=== PATIENT | male | born 1955 | race Caucasian/White ===

== ENCOUNTER 2024-04-15 15:00 | Emergency (ER) | payer MEDICARE, OTHER, SELFPAY ==
[2024-04-15 15:04] VITALS: BP 144/78
[2024-04-15 15:27] LABS: % Basophils 0.6 % (0-2); % Eosinophils 5.1 % (0-6); % Immature Granulocytes 0.3 % (0-0.5); % Lymphocytes 24.3 % (20.5-51.1); % Monocytes 9.8 % (1.7-9.3); % Neutrophils 59.9 % (42.2-75.2); Absolute Eosinophils 0.4 10^3/uL (0-0.7); Absolute Lymphocytes 1.7 10^3/uL (1.2-3.4); Absolute Monocytes 0.7 10^3/uL (0.1-0.6); Absolute Neutrophils 4.3 10^3/uL (1.4-6.5); Hematocrit 40.3 % (39.0-52.0); Hemoglobin 14.5 g/dL (13.0-18.0); Mean Corpuscular Hgb 33.8 pg (27.0-31.0); Mean Corpuscular Volume 93.9 fL (80.0-94.0); Mean Platelet Volume 8.8 fL (7.4-10.4); Nucleated Red Blood Cells % 0 % (-); Platelet Count 180 10^3/uL (130-400); Red Blood Cell Count 4.29 10^6/uL (4.70-6.10); Red Cell Dist. Width 12.9 % (11.5-14.5); White Blood Cell Count 7.1 10^3/uL (4.8-10.8)
[2024-04-15 15:42] LABS: ALT (SGPT) 22 U/L (0-50); AST (SGOT) 33 U/L (17-59); Albumin 4.1 g/dl (3.5-5.0); Alkaline Phosphatase 61 U/L (38-126); Blood Urea Nitrogen 15 mg/dl (9-20); Calcium 9.7 mg/dl (8.4-10.2); Carbon Dioxide 27 mmol/L (22-30); Chloride 103 mmol/L (98-107); Glucose 110 mg/dl (70-99); Potassium 4.1 mmol/L (3.5-5.1); Sodium 136 mmol/L (135-145); Total Bilirubin 0.8 mg/dl (0.2-1.3); Total Protein 7.1 g/dl (6.3-8.2); eGFR > 60.00
[2024-04-15 15:51] LABS: Troponin I < 0.012 ng/ml
--- NOTE | 2024-04-15 16:33 | ED.GENMED ---
History of Present Illness
General
Chief Complaint: Blood Pressure Problem
Time Seen by Provider: 04/15/24 15:35
History of Present Illness
History of Present Illness:
68-year-old male with history of coronary artery disease status post RI and stenting 2 months ago ([facility]), hyperlipidemia, hypertension, and prior CABG presents to the emergency department for evaluation of blurry vision, head
pressure, and left upper lip tingling that began approximate 1130 today. He took a dose of Tylenol and the symptoms abated approximately 3 hours later. He currently feels well with no complaints. He is also concerned that his blood pressure was
elevated during this event. He is currently anticoagulated on Eliquis and also takes Plavix after the recent coronary intervention.
Past History
Past History
ED Past Medical History: CAD, CVA, HTN, Hypercholesterolemia, [place] and Other (BPH, glaucoma)
ED Past Surgical History: Cardiac (CABG), Cholecystectomy and Urological
Social History
Tobacco: Former smoker
Alcohol: None
Drug: None
Personal:
Living: with family
Employment: Retired
Family History
Family History: Other
Review of Systems
Review of Systems
Allergies reviewed?: Yes
All Other Systems: ROS reviewed and negative except as documented in HPI and ROS
Phy Exam
Physical Exam
Physical Exam:
GEN: Well appearing, NAD, WDWN
HEENT: Oral mucosa moist, no scleral icterus, no nasal congestion, no carotid bruit
Cardiac: Regular rate and rhythm, no murmurs
Lung: No respiratory distress, no tachypnea, lungs clear to auscultation
MSK: No gross deformity or injuries
Skin: Good color, no pallor or jaundice, no rashes
Neuro: AO x3; CN II-XII grossly intact. BUE strength 5/5 in all conley, sensation intact and symmetric. BLE strength 5/5 in all conley, sensation intact and symmetric
Psych: Calm, cooperative
Course
Orders/Labs/Results
Orders:
Orders
04/15/24 15:07
Electrocardiogram (*1) Urgent
Reason for Study: Hypertension, Benign
EKG- Treatment ONCE
04/15/24 15:09
CT Head W/o Iv Contrast Urgent
Comment:
Reason For Exam: blurry vision and headache.
04/15/24 15:16
Complete Blood Count/With Diff Urgent
Comprehensive Metabolic Panel Urgent
Troponin I Urgent
Abnormal Lab Results
04/15/24
15:16
RBC 4.29 L 10^6/uL
(4.70-6.10)
MCH 33.8 H pg
(27.0-31.0)
Absolute Monos (auto) 0.7 H 10^3/uL
(0.1-0.6)
Monocytes % 9.8 H %
(1.7-9.3)
Glucose 110 H mg/dl
(70-99)
04/15/24 15:16
04/15/24 15:16
Vital Signs
Initial and Last Documented VS:
Initial Vital Signs
Temp Pulse Resp BP Pulse Ox
97.8 F 59 18 144/78 98
04/15/24 15:04 04/15/24 15:04 04/15/24 15:04 04/15/24 15:04 04/15/24 15:04
Last Documented Vital Signs
Temp Pulse Resp BP Pulse Ox
97.8 F 64 18 137/82 98
04/15/24 15:04 04/15/24 16:40 04/15/24 16:40 04/15/24 16:40 04/15/24 16:40
MDM/Problems Addressed
MDM/Problems Addressed:
I suspect the patient's symptoms were more atypical migraine than eligibility services representative of transient ischemic attack. I reviewed his health records on his patient portal for the past and he did have carotid Doppler ultrasound performed less than 1 year
ago showing no carotid stenosis. Given that head CT is normal and the patient returned to her normal neurologic baseline do not feel there is any indication for further workup particular given that he is on maximal medical therapy with
anticoagulant, antiplatelet, and cholesterol medications. I encouraged him to follow-up with his supervisor bindery and his primary care physician as an outpatient and return to the emergency department promptly for any recurrence of symptoms
Comment
Comment:
EKG independently interpreted by me shows a sinus bradycardia at a rate of [address] changes concerning for ischemia
*Critical Care Note
Total Time (30-74mins, 75-104mins- exclusive of procedures): Not Applicable
ED Attending Note
-
Portions of this chart may have been created with voice recognition software.� Occasional wrong word or��sound alike� substitutions may have occurred due to the inherent limitations of voice recognition software.
Discharge Plan
Departure
Patient Disposition: Home (Routine Discharge)
Date of Disposition: 04/15/24
Time of Disposition: 16:33
Patient with high blood pressure during this ER visit?: No
Discharge Problem:
Blurred vision, bilateral
Instructions: High Blood Pressure (DC)
Prescriptions:
No Action
ondansetron 4 mg tablet,disintegrating
4 mg PO Q8H PRN (Reason: nausea and vomiting) 4 Days Qty: 10 0RF
pantoprazole [Protonix] 40 mg tablet,delayed release (DR/EC)
40 mg PO DAILY Qty: 20 0RF
Activity Restrictions/Additional Instructions:
Your workup is reassuring
Follow up with your primary doctor
Return to the ER if symptoms reoccur
Interventions
Interventions:
*Risk Screen - Suicide Last Done: 04/15/24 15:04
*General Assessment Last Done: 04/15/24 15:04
*Neglect/Abuse Screening Last Done: 04/15/24 15:04
ED- Fall Risk Assessment Last Done: 04/15/24 16:33
*ED COVID-19 Vaccine History Last Done: 04/15/24 15:04
*Nursing Disposition Last Done: 04/15/24 16:49
ED- Cardiac Assessment Last Done: 04/15/24 16:33
ED- Neurological Assessment Last Done: 04/15/24 16:33
ED- Pulmonary Assessment Last Done: 04/15/24 16:33
Discharge Date and Time
Discharge Date/Time: 04/15/24 16:49
Print Language: EMIRATI
[2024-04-15 16:40] VITALS: BP 137/82
== END 2024-04-15 16:49 | disposition home or self-care (01) ==
LOC: EMR 15:00
PROVIDERS: Emergency Medicine; EMERGENCY PHYSICIAN Emergency Medicine; FAMILY PHYSICIAN Family Medicine
DX: H53.8 Other visual disturbances (principal); I25.10 Atherosclerotic heart disease of native coronary artery without angina pectoris; I10 Essential (primary) hypertension; E78.00 Pure hypercholesterolemia, unspecified; I25.2 Old myocardial infarction; N40.0 Benign prostatic hyperplasia without lower urinary tract symptoms; H40.9 Unspecified glaucoma; Z79.01 Long term (current) use of anticoagulants; Z86.73 Personal history of transient ischemic attack (TIA), and cerebral infarction without residual deficits; Z87.891 Personal history of nicotine dependence; Z90.49 Acquired absence of other specified parts of digestive tract; Z95.1 Presence of aortocoronary bypass graft; Z95.5 Presence of coronary angioplasty implant and graft
CPT/HCPCS: 99284; 70450; 80053; 84484; 85025; 93005

== ENCOUNTER → 2025-05-03 14:17 | Outpatient (REF) | payer MEDICARE, OTHER, SELFPAY | LOC: RAD 14:17 | PROVIDERS: ATTENDING PHYSICIAN Internal Medicine Cardiovascular Disease; FAMILY PHYSICIAN Family Medicine; OTHER PHYSICIAN Internal Medicine; OTHER PHYSICIAN Internal Medicine Cardiovascular Disease; REFERRING PHYSICIAN Surgery Vascular Surgery | DX: I73.9 Peripheral vascular disease, unspecified (principal) | CPT/HCPCS: 93922; 93925 ==

== ENCOUNTER 2025-05-23 18:46 | Inpatient (IN) | payer MEDICARE, OTHER, SELFPAY ==
[2025-05-23] VITALS (9 sets, daily range): BP systolic 120–159; BP diastolic 63–78; BMI 23.9; BMI 22.7
[2025-05-23] MEDS: DILAUDID 0.5 MG IV ×4 (13:32→22:27)
[2025-05-23] MEDS: NSS 500 IV (13:32)
[2025-05-23] MEDS: PROTONIX IV 40 MG IV (13:33)
[2025-05-23 13:42] LABS: Hematocrit 44.3 % (39.0-52.0); Hemoglobin 15.8 g/dL (13.0-18.0); Mean Corp Hgb Conc. 35.7 g/dL (33.0-37.0); Mean Corpuscular Volume 93.3 fL (80.0-94.0); Nucleated Red Blood Cells % 0 % (-); Platelet Count 211 10^3/uL (130-400); Red Cell Dist. Width 13.1 % (11.5-14.5)
--- NOTE | 2025-05-23 13:49 | ED.GENMED ---
History of Present Illness
General
Chief Complaint: Abdominal Pain
Source: patient
Exam Limitations: none
Time Seen by Provider: 05/23/25 13:22
Nursing documentation reviewed up to this point in time: agreed with
History of Present Illness
History of Present Illness:
Patient with history of CAD, status post cardiac stent placement at [facility] 1 year ago, presents to ED secondary to sudden onset of diffuse abdominal pain, radiating up to his chest, shortly after waking up this morning. Abdominal
pain described as crampy, diffuse, without any alleviating or exacerbate factors. Denies vomiting. Patient reports having had a bowel movement, which did not affect his symptoms. Denies trauma. Denies recent illness. Denies difficulty
urination. Patient unsure if this pain is similar to what he experienced last year. In addition, patient has had his gallbladder removed over 20 years ago, but cannot recall the symptoms that he had at that time. Patient is currently taking
aspirin and Plavix. Denies recent change in medications or diet.
Past History
Past History
ED Past Medical History: CAD, CVA, HTN, Hypercholesterolemia, [place] and Other (BPH, glaucoma)
ED Past Surgical History: Cardiac (CABG), Cholecystectomy and Urological
Social History
Tobacco: Former smoker
Alcohol: None
Drug: None
Personal:
Living: with family
Employment: Retired
Family History
Family History: Other
Review of Systems
Review of Systems
Allergies reviewed?: Yes
All Other Systems: ROS reviewed and negative except as documented in HPI and ROS
Constitutional: Reports no symptoms; Denies fever
Respiratory: Reports no symptoms
Cardiac: Reports chest pain
ABD/GI: Reports abdominal pain; Denies vomiting or diarrhea
: Reports no symptoms
Musculoskeletal: Reports no symptoms
Skin: Reports no symptoms
Neurological: Reports no symptoms
Phy Exam
Physical Exam
Physical Exam:
Physical Exam
General: mild painful distress, not acutely ill. afebrile
Head: nc/at. eomi
Neck: supple. normal range of motion. normal posterior pharynx
Heart: s1/s2 regular rate and rhythm,
Lungs: no acute respiratory distress. clear bilaterally. chest wall nontender to palpation
Abdomen: normal bowel sounds. not tender.
Neuro: alert and oriented x 3. no focal neurological deficits
Skin: no rash
Psychiatric: well kept. interactive and cooperative
Extremities: no edema. no calf tenderness.
Course
Orders/Labs/Results
Orders:
Orders
05/23/25 12:51
ECG [Electrocardiogram (*1)] Urgent
Reason for Study: Chest Pain
EKG- Treatment ONCE
05/23/25 13:22
Complete Blood Count/With Diff Urgent
Comprehensive Metabolic Panel Urgent
Lipase Urgent
NT-proBNP Urgent
Comment: PROBNP ADDED ON BY FLOOR 2:30PM 05-23-25
Troponin I Urgent
05/23/25 13:27
HYDROmorphone [Dilaudid] 0.5 mg IV NOW STA
Pantoprazole [Protonix IV] 40 mg IV NOW STA
05/23/25 13:28
0.9% Sodium Chloride 500 ml [Nss] 500 ml IV BOLUS
CR Obstruct Series W/pa Chest Urgent
Comment:
Reason For Exam: chest/upper abd pain
05/23/25 14:27
Add On- LAB Urgent
Tests Added?: ProBNP
05/23/25 14:42
CT Abd/pelvis W Iv Cont Urgent
Comment:
Reason For Exam: lower abd pain
05/23/25 14:46
HYDROmorphone [Dilaudid] 0.5 mg IV NOW STA
Ondansetron Injectable [Zofran] 4 mg IV NOW STA
05/23/25 Dinner
NPO
Allow oral meds: Yes
Allow clear liquids: No
05/23/25 18:09
HYDROmorphone [Dilaudid] 0.5 mg IV NOW STA
05/23/25 18:24
Piperacillin/Tazo 3.375 Gram [Zosyn] 3.375 gram in 50 ml IV NOW
05/23/25 18:37
Admit/Transfer Patient As Directed
Co-Sign Provider:
Level of Care: Inpatient admission
Assign to:: Telemetry
Physician / Group: leena
Diagnosis: acute appendicitis
Reason for Telemetry: Arrhythmia
Date to Stop Telemetry: 05/26/25
Time to Stop Telemetry: 11:00
Reason for Hospitalization: acute appendicitis
Expected length of stay greater than two midnights?: Yes
ELOS- Estimated Length of Stay in days: 2
I certify the patient meets the requirements for IP care: Yes
PRN Pain Medication Management As Directed
May give lesser potent ordered pain med per pt: Yes
preference::
Protocol:: Medication orders for pain may be administered in a
manner that supports deferring to patient preference
when the pt is:
- Requesting an ordered lesser potent pain medication.
Least to most potent pain medications are defined
as: acetaminophen < NSAID < tramadol < opioids
(morphine, oxycodone, hydromorphone).
- Requesting a lesser dose of the same medication IF
ORDERED.
- Requesting a less intrusive route of administration
if both routes are prescribed by the provider (PO <
IV).
05/23/25 18:38
Code Status As Directed
Resuscitation Status: Full Code
05/23/25 22:12
0.9% Sodium Chloride 1000 ml [Nss] 1,000 ml IV 100 mls/hr
HYDROmorphone [Dilaudid] 0.5 mg IV Q4HPRN PRN
Ondansetron Injectable [Zofran] 4 mg IV Q6HPRN PRN
05/23/25 22:12
SURGICAL CONSULT Routine
Consulting Provider: Ronn Mendez
Was physician already notified: Yes
Activity As Directed
Activity Level: As Tolerated
Pneumatic Compression Sleeves As Directed
Type: Knee high
Vital Signs As Directed
Frequency: Per unit guidelines
DX Deep Vein Thrombosis Video Routine
05/24/25 07:14
Complete Blood Count/With Diff IN AM
Comprehensive Metabolic Panel IN AM
05/26/25 11:00
DC Protocol for Telemetry ONCE
Abnormal Lab Results
05/23/25
13:22
WBC 14.3 H 10^3/uL
(4.8-10.8)
MCH 33.3 H pg
(27.0-31.0)
Abs Immat Gran (auto) 0.1 H 10^3/uL
(0-0.05)
Absolute Neuts (auto) 11.9 H 10^3/uL
(1.4-6.5)
Absolute Lymphs (auto) 1.0 L 10^3/uL
(1.2-3.4)
Absolute Monos (auto) 0.9 H 10^3/uL
(0.1-0.6)
Immature Gran % 0.6 H %
(0-0.5)
Neutrophils % 83.1 H %
(42.2-75.2)
Lymphocytes % 7.2 L %
(20.5-51.1)
Sodium 133 L mmol/L
(135-145)
Glucose 106 H mg/dl
(70-99)
05/23/25 13:22
05/23/25 13:22
Vital Signs
Initial and Last Documented VS:
Initial Vital Signs
Temp Pulse Resp BP Pulse Ox
98.4 F 61 16 159/78 99
05/23/25 12:52 05/23/25 12:52 05/23/25 12:52 05/23/25 12:52 05/23/25 12:52
Last Documented Vital Signs
Temp Pulse Resp BP Pulse Ox
97.8 F 78 18 122/64 97
05/24/25 14:30 05/24/25 14:45 05/24/25 14:45 05/24/25 14:45 05/24/25 14:45
MDM/Problems Addressed
MDM/Problems Addressed:
CT abdomen pelvis report reviewed and discussed with patient.
Patient evaluated in ED by Dr. Mendez, surgery. Recommends admission to hospitalist service, in light of patient's extensive medical history, as well as patient currently taking aspirin and Plavix.
*Pulse Oximetry
SaO2: 99
Oxygen Mode of Delivery: Room air
Patient hypoxic: no
*EKG
Interpreted by ED Provider?: Yes
EKG Intrepretation Date: 05/23/25
Heart Rate: 63
Rate: normal
Rhythm: sinus and PVC's
Wisdom: normal axis
*Critical Care Note
Total Time (30-74mins, 75-104mins- exclusive of procedures): Not Applicable
ED Attending Note
-
Portions of this chart may have been created with voice recognition software.� Occasional wrong word or��sound alike� substitutions may have occurred due to the inherent limitations of voice recognition software.
Discharge Plan
Departure
Patient Disposition: Admit
Date of Disposition: 05/23/25
Time of Disposition: 18:24
Admit to: Telemetry
Presentation/result/management discussed w/ accepting MD/DO: Hospitalist
Discharge Problem:
Acute appendicitis
Interventions
Interventions:
*Risk Screen - Suicide Last Done: 05/23/25 14:14
*General Assessment Last Done: 05/23/25 14:14
*Neglect/Abuse Screening Last Done: 05/23/25 14:14
*ED- Fall Risk Assessment Last Done: 05/23/25 14:14
*ED COVID-19 Vaccine History Last Done: 05/23/25 14:14
*Nursing Disposition Last Done: 05/23/25 22:08
RF-Nelopb-Lqttaajfbg Assessment Last Done: 05/23/25 13:38
Discharge Date and Time
Discharge Date/Time: 05/23/25 22:09
[2025-05-23 13:58] LABS: ALT (SGPT) 16 U/L (0-50); AST (SGOT) 28 U/L (17-59); Albumin 4.3 g/dl (3.5-5.0); Alkaline Phosphatase 81 U/L (38-126); Blood Urea Nitrogen 12 mg/dl (9-20); Calcium 9.6 mg/dl (8.4-10.2); Carbon Dioxide 26 mmol/L (22-30); Chloride 101 mmol/L (98-107); Glucose 106 mg/dl (70-99); Lipase 76 U/L (23-300); Potassium 4.1 mmol/L (3.5-5.1); Sodium 133 mmol/L (135-145); Total Protein 8.2 g/dl (6.3-8.2); eGFR > 60.00
[2025-05-23 14:07] LABS: Troponin I 0.015 ng/ml
[2025-05-23] MEDS: ZOFRAN 4 MG IV ×2 (14:49→22:27)
[2025-05-23] MEDS: ZOSYN 50 IV (18:27)
--- NOTE | 2025-05-23 19:12 | HPS.HSE ---
Family Physician
-
Family Physician: Lisa Meeks MD
Chief Complaint
-
abdominal pain
History of Present Illness
69-year-old male past medical history of CAD status post CABG in 1998, prior cardiac stents, stent placement 1 year ago, prior TIA, bilateral carotid artery stenosis 70% and 50%, hypertension, hypercholesteremia, BPH, glaucoma, ILD, rheumatoid
arthritis, bilateral groin hernias presenting with sudden onset of diffuse abdominal pain rating up to his chest waking up this morning. Abdominal pain is described as crampy and diffuse without any alleviating or exacerbating factors. He did have
an episode of vomiting. He did have chills. He reports having a bowel movement which did not affect his symptoms. Denies trauma. Denies any recent illness. Denies urinary symptoms.
He has a extensive cardiac history with history of CABG in , prior cardiac stents, stent placement 1 year ago. Denies any recent chest pain or shortness of breath.
He was found to have carotid artery stenosis with 70% blockage on the right, 50% blockage on the left. Scheduled to see Dr. Dominguez for discussion of intervention. He has had 3 syncopal episodes in the past year. He had a prior history of TIA.
He did have cholecystectomy 20 years ago.
Denies history of smoking. Drinks 1 to 2 glasses of wine.
Medical History
Past Medical History
Past Medical History: Reports Other ( CAD status post CABG in 1998, 15 prior cardiac stents, stent placement 1 year ago, prior TIA, bilateral carotid artery stenosis 70% and 50%, hypertension, hypercholesteremia, BPH, glaucoma, ILD, rheumatoid
arthritis, bilateral groin hernias)
Past Surgical History: Reports Other (CABG )
Social History
Tobacco: Non-smoker
Alcohol: Daily
Drug: None
Family History
Family History: Not pertinent
Allergies / Home Medications
Allergies reflects when Allergies were last updated in [employer].
Home Medications with original date entered in [employer]
Allergy/Medication List:
Allergies
Allergy/AdvReac Type Severity Reaction Status Date / Time
latex Allergy Rash Verified 05/23/25 12:57
Home Medications
ondansetron 4 mg disintegrating tablet 4 mg PO Q8H PRN nausea and vomiting 4 days #10 tabs 11/27/22
pantoprazole 40 mg tablet,delayed release (Protonix) 40 mg PO DAILY #20 tabs 11/27/22
Review of Systems
-
Constitutional: Reports No Symptoms
EENT: Reports No Symptoms
Respiratory: Reports No Symptoms
Cardiac: Reports No Symptoms
Abdomen/GI: Reports No Symptoms
: Reports No Symptoms
Musculoskeletal: Reports No Symptoms
Skin: Reports No Symptoms
Neurological: Reports No Symptoms
Endocrine: Reports No Symptoms
Hematologic/Lymphatic: Reports No Symptoms
Psych: Reports No Symptoms
Physical Exam
Vital Signs
Vital Signs
Temp Pulse Resp BP Pulse Ox
98.4 F 70 14 139/67 95
05/23/25 12:52 05/23/25 18:30 05/23/25 18:30 05/23/25 18:00 05/23/25 18:15
Physical Exam
General: Well Developed, Well Nourished and No Apparent Distress
HEENT: NormoCephalic, Moist mucous membranes and Atraumatic
Respiratory: Clear
Cardiac: S1/S2 and Regular Rhythm; No Murmur or Rub
GI: Soft, Non Tender, Non Distended and Normal Bowel Sounds; No Organomegaly
Rectal: Deferred by Provider
Musculoskeletal: No Clubbing, No Cyanosis and No Edema
Skin: No Rash
Neuro: Nonfocal/grossly intact
Laboratory Results
-
05/23/25 13:22
05/23/25 13:22
Laboratory Results
Total Bilirubin 0.9 mg/dl (0.2-1.3) 07/28/25 13:22
AST 28 U/L (17-59) 05/23/25 13:22
ALT 16 U/L (0-50) 05/23/25 13:22
Alkaline Phosphatase 81 U/L (38-126) 05/23/25 13:22
Troponin I 0.015 ng/ml 05/23/25 13:22
Lipase 76 U/L (23-300) 05/23/25 13:22
Data Reviewed
-
Lab Data: Labs Reviewed by me
Old Records: Reviewed
Impression/Plan
-
IMPRESSION:
PLAN:
# Acute appendicitis
-Leukocytosis
- CT abdomen pelvis shows 3 Ramos appendix fecalith, gallbladder slightly distended 8 mm, mild adjacent/surrounding inflammatory soft tissue stranding highly concerning for appendicitis.
- N.p.o.
- IV fluids
- Zosyn
- General Surgery consulted
-Zofran, Dilaudid
- Patient with high risk for post cardiac complication given CAD, and carotid artery stenosis
- Cardiology consulted for risk assessment and optimization
#CAD status post CABG in 1988, 15 prior stents, recent stent 1 year ago
- Hold Plavix
- continue aspirin
# Bilateral carotid artery stenosis
- 70% blockage in right, 50% blockage on left
- Has not seen Dr. Dominguez yet
-continue aspirin, hold plavix
# Recent syncopal episodes in the past year
- Do not think carotid artery stenosis should be the cause of this
Bilateral groin hernias
History of TIA
Essential hypertension
- Continue metoprolol
Hypercholesterolemia
BPH
Glaucoma
History of ILD
Rheumatoid arthritis
Daily alcohol use
Full code
DVT prophylaxis�SCDs
N.p.o.
--- NOTE | 2025-05-23 19:59 | CON.GS ---
Medical History
-
Chief Complaint: Abdominal pain
History of Present Illness:
Patient is a 69 yo M with a PMH of HTN, HLD, CAD s/p CABG in 1998 s/p PCI with stents x 15 most recently in 2023 (on ASA and Plavix, LD 7 AM), TIAs, bilateral carotid artery stenosis, BPH, newly diagnosed RA, and s/p laparoscopic appendectomy who
presents with 24 hours of abdominal pain. He states that his symptoms began acutely this morning. He describes an upper abdominal discomfort and pressure sensation. Associated nausea and vomiting. Associated fevers and chills; of note he states
that he has chronic issues with fevers and chills that has been largely undiagnosed. He denies any fluctuations in GI function. Denies any chronic GI issues. States that his last colonoscopy was within the last few years at an outside hospital.
He has an extensive cardiovascular history the majority of which has been managed at [facility]. He was recently found to have carotid artery stenosis with 70% blockage on the RIGHT and 50% blockage on the LEFT. He was scheduled
for vascular evaluation by Dr. Dominguez in the near future. He has a prior history of TIAs and syncopal episodes.
Past Medical History
Past Medical History: CAD, CVA, GERD, HTN, Hypercholesterolemia and Other (Symptomatic carotid artery stenosis)
Past Surgical History: Cardiac (CABG and PCI with multiple stents) and Cholecystectomy
Social History
Tobacco: Non-Smoker
Alcohol: Daily
Drug: None
Family History
Family History: Reviewed & Noncontributory
Allergies / Home Medications
Allergy/AdvReac Type Severity Reaction Status Date / Time
latex Allergy Rash Verified 05/23/25 12:57
�Medication �Instructions �Recorded �Confirmed �Type
ondansetron 4 mg disintegrating 4 mg PO Q8H PRN nausea and 11/27/22 Rx
tablet vomiting 4 days #10 tabs
pantoprazole 40 mg tablet,delayed 40 mg PO DAILY #20 tabs 11/27/22 Rx
release (Protonix)
Review of Systems
-
A 10 point review of systems was completed, and was negative except as per HPI.
Physical Exam
Vital Signs
Temp Pulse Resp BP Pulse Ox
98.4 F 70 14 139/67 95
05/23/25 12:52 05/23/25 18:30 05/23/25 18:30 05/23/25 18:00 05/23/25 18:15
05/22/25 05/23/25 05/24/25
06:59 06:59 06:59
Actual Weight 80 kg
Body Mass Index (BMI) 23.9
Lab Results
05/23/25 13:22
05/23/25 13:22
WBC 14.3 10^3/uL (4.8-10.8) H 05/23/25 13:22
Hgb 15.8 g/dL (13.0-18.0) 05/23/25 13:22
Hct 44.3 % (39.0-52.0) 05/23/25 13:22
Plt Count 211 10^3/uL (130-400) 05/23/25 13:22
Abs Immat Gran (auto) 0.1 10^3/uL (0-0.05) H 05/23/25 13:22
Neutrophils % 83.1 % (42.2-75.2) H 05/23/25 13:22
Physical Exam
General: Well Developed, Well Nourished and No Apparent Distress
HEENT: Normocephalic and Anicteric
Respiratory: Non Labored Respirations
Cardiac: Regular Rhythm
GI: Soft, Non Distended, Tender (RLQ), Incisions (Well healed) and Other (No diffuse peritonitis)
Musculoskeletal: No Edema
Skin: Warm and Dry
Neuro: Nonfocal/Grossly Intact
Data Reviewed
-
CT Scan: Image Personally Visualized and interpreted and Report Reviewed by me
Labs: Labs Reviewed by me
Assessment / Plan
-
Patient is a 69 yo M p/w acute appendicitis
The natural history and pathophysiology of appendicitis was discussed. Anatomy was reviewed. CT scan imaging as a relates to his appendix was reviewed. Options for management including medical management with antibiotics versus surgical
management with appendectomy were considered and discussed. He has an increased risk for failure of medical management given his small appendicolith. He is at increased risk for operative complications given his antiplatelet medications and
cardiovascular risk profile.
We discussed a laparoscopic appendectomy. The procedure itself, as well as the risks, benefits, and alternatives was discussed. Typical postprocedure recovery was discussed.
Given his increased cardiovascular risks and active antiplatelet medications plan on an initial trial of antibiotics for the first 12 to 24 hours. He will need cardiovascular risk profiling and clearance. Hold Plavix for now. Antibiotics with
Zosyn.
-- Abx: Zosyn
-- Cardiac consult, may need Vascular consult given his carotid stenosis
-- NPO, IVF
-- Hold Plavix
-- Repeat labs in AM
[2025-05-23] MEDS: NSS 1000 IV (22:28)
[2025-05-24] VITALS (14 sets, daily range): BP systolic 117–144; BP diastolic 61–82
[2025-05-24] MEDS: DILAUDID 0.5 MG IV ×3 (02:27→10:27)
[2025-05-24] MEDS: TYLENOL 650 MG PO (02:48)
--- NOTE | 2025-05-24 07:59 | CON.CAR ---
Addendum entered and electronically signed by Devonte Tubbs MD 05/24/25 13:06:
69-year-old man with acute appendicitis scheduled for appendectomy.
PMH/PSH: CAD, status post CABG 1998, cardiac catheterization January 2024 with patent COVINGTON to LAD, numerous stents with most recent being RCA stent January 2024 no other grafts seen, hyperlipidemia, hypertension, greater than 70% right ICA stenosis by
ultrasound March 2025, PAD, history of atrial flutter ablation, LINQ monitor, cholecystectomy, remote TIA, glaucoma, rheumatoid arthritis, interstitial lung disease, BPH, bilateral herniorrhaphies
Current medications: Aspirin 81 mg a day, metoprolol ER 50 mg twice daily, Plaquenil 400 mg a day, Remeron, pantoprazole, tamsulosin, thiamine, piperacillin, Lovenox. Patient had been on Plavix as outpatient, Repatha
Last week he walked on a treadmill up a 10% grade at 3.2 miles an hour for 20 minutes without symptoms of excessive dyspnea and without chest.
Rest of history as per Christina Dominguez. Note below reviewed in detail and agree unless otherwise specified.
139/68, pulse 70, rest, exam unremarkable, lungs are clear, regular rate and rhythm without murmurs, abdomen benign extremities without clubbing sinus edema distal pulses palpable but diminished
Chest x-ray reticular pattern, Linq in place, minor atherosclerosis
ECG: Pending
Hemoglobin 13.5, platelets 144, BUN/creatinine are 7 and 0.8
Impression:
Appendicitis
Longstanding CAD with multiple PCI's, remote CABG, D, no other grafts patent
Other diagnoses as above PMH/PSH and as below per Christina Dominguez. Reviewed in detail and agree, unless otherwise specified
Plan:
He appears stable from a cardiac standpoint.
EKG images not currently available for review. However, official read is sinus rhythm with PVCs only.
Patient appears to be medically optimized and can proceed as planned with appendectomy at acceptable cardiac risk.
Original Note:
Consultation
Consultation Request
Date/Time Consultation Requested: 05/23/2025 at 2343
Date/Time Consultation Performed: 05/24/2025 at 0759
Requesting Provider: Dr. Ott
Performing Provider: Dr. MARILOU Tubbs
Reason for Consultation: Preoperative cardiovascular risk stratification for planned appendectomy
Medical History
-
History of Present Illness:
Patient came to the ER yesterday with abdominal pain and was admitted with acute appendicitis and cardiology is consulted for preoperative evaluation and also at patient request. Patient reports that his father with complications from
appendicitis and so when he started with abdominal pain he was concerned and came to the ER. Imaging reveals appendicitis and there was discussion about medical management versus surgical intervention. Patient now feels he would like surgical
intervention, cardiology consultation requested for preoperative risk factor stratification. Patient used to follow with a range rider at [facility], Dr. Tony Wilkinson, who retired and patient elected to begin following with Dr. Beltre "Tressa"roseanne for long-term cardiology care and was seen by him as an initial visit in the office on 03/18/2025. At that time they reviewed his cardiac history and set BP and cholesterol goals. Patient was recommended to stay on aspirin 81 mg daily lifelong
therapy and Plavix 75 mg daily, he has been on DAPT for more than 1 year given his history of CABG and multiple percutaneous interventions with the last one being on 02/04/2024. 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 No resting chest pain or shortness of breath.
PMH:
CAD
s/p CABG with COVINGTON to mid LAD, other grafts unknown 1998
s/p proximal to mid [employer] RCA PCI no stent name or dimension listed in available record 02/04/24
Cardiac cath 02/04/2024 with patent COVINGTON to mid LAD and no other patent grafts were visualized on supravalvular aortogram
Hyperlipidemia
HTN
Right ICA disease, greater than 70% by carotid U/S 03/2025
PAD with claudication
Paroxysmal typical atrial flutter without recurrence following ablation at unknown date
Not chronically anticoagulated due to lack of recurrence of atrial arrhythmia and patient choice
Linq monitor in place
Past Medical History
Past Medical History: Other (In HPI)
Past Surgical History: Cardiac (CABG 1998, multiple PCI procedures, last PCI was an RCA stent 01/2024, s/p Linq monitor) and Cholecystectomy
Social History
Tobacco: Former Smoker
Alcohol: Occasional
Drug: None
Personal:
Living: With Family
Family History
Family History: CAD
Allergies / Home Medications
Allergy/AdvReac Type Severity Reaction Status Date / Time
latex Allergy Rash Verified 05/23/25 12:57
�Medication �Instructions �Recorded �Confirmed �Type
ondansetron 4 mg disintegrating 4 mg PO Q8H PRN nausea and 11/27/22 Rx
tablet vomiting 4 days #10 tabs
pantoprazole 40 mg tablet,delayed 40 mg PO DAILY #20 tabs 11/27/22 05/23/25 Rx
release (Protonix)
Repatha Syringe IM Autoimmune Disorder 05/23/25 History
aspirin 81 mg tablet,delayed 81 mg PO DAILY Blood Clot 05/23/25 05/23/25 History
release Prevention/Tx
clopidogrel 75 mg tablet (Plavix) 75 mg PO DAILY Blood Clot 05/23/25 05/23/25 History
Prevention/Tx
hydroxychloroquine 200 mg tablet 400 mg PO DAILY Autoimmune Disorder 05/23/25 05/23/25 History
metoprolol succinate 50 mg 50 mg PO BID Blood Pressure 05/23/25 05/23/25 History
tablet,extended release 24 hr
(Toprol XL)
mirtazapine 15 mg tablet 15 mg PO HS Depression 05/23/25 05/23/25 History
plecanatide 3 mg tablet (Trulance) 3 mg PO DAILY Diabetes 05/23/25 05/23/25 History
tamsulosin 0.4 mg capsule (Flomax) 0.4 mg PO HS Urinary Issue 05/23/25 05/23/25 History
Review of Systems
-
History Source: Patient
All other systems: Negative unless noted
Physical Exam
Vital Signs
Temp Pulse Resp BP Pulse Ox
98.6 F 61 18 123/64 97
05/24/25 03:52 05/24/25 03:52 05/24/25 03:52 05/24/25 03:52 05/24/25 03:52
GEN: NAD. AAOx3
HEENT: EOMI, MMM
LUNGS: RA. CTA B/L, no wheeze
CV: SR on tele. Reg, no murmur
ABD: diffusely tender
EXT: No edema
NEURO: Gross non-focal
SKIN: No rash
Lab Results
Troponin I 0.015 ng/ml 05/23/25 13:22
Eum-T-Cmirnhgqnqq Pept 143 pg/ml 05/23/25 13:22
Impression / Plan
-
PCP: Dr. Lisa Meeks
Cardiology: Dr. Lord
Impression:
Admitted with abdominal pain and acute appendicitis 05/15/2025
Acute appendicitis
CAD
s/p CABG with COVINGTON to mid LAD, other grafts unknown 1998
s/p proximal to mid [place] RCA PCI no stent name or dimension listed in available record 02/04/24
Cardiac cath 02/04/2024 with patent COVINGTON to mid LAD and no other patent grafts were visualized on supravalvular aortogram
Hyperlipidemia
HTN
Right ICA disease, greater than 70% by carotid U/S 03/2025
PAD with claudication
Paroxysmal typical atrial flutter without recurrence following ablation at unknown date
Not chronically anticoagulated due to lack of recurrence of atrial arrhythmia and patient choice
Linq monitor in place
Echo 02/05/2024: EF 55 to 60%, grade 2 diastolic dysfunction, basal and mid inferior wall and basal inferoseptal hypokinesis, mitral valve thickened with physiologic MR
Plan:
-Patient came to the ER yesterday with abdominal pain and was admitted with acute appendicitis and cardiology is consulted for preoperative evaluation and also at patient request. Patient reports that his father with complications from
appendicitis and so when he started with abdominal pain he was concerned and came to the ER. Imaging reveals appendicitis and there was discussion about medical management versus surgical intervention. Patient now feels he would like surgical
intervention, cardiology consultation requested for preoperative risk factor stratification. Patient used to follow with a range rider at [facility], Dr. Tony Wilkinson, who retired and patient elected to begin following with Dr. Beltre "Tressa"roseanne for long-term cardiology care and was seen by him as an initial visit in the office on 03/18/2025. At that time they reviewed his cardiac history and set BP and cholesterol goals. Patient was recommended to stay on aspirin 81 mg daily lifelong
therapy and Plavix 75 mg daily, he has been on DAPT for more than 1 year given his history of CABG and multiple percutaneous interventions with the last one being on 02/04/2024. 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 No resting chest pain or shortness of breath.
-ECG reviewed by me is SR without acute ST changes
-Telemetry reviewed by me looks like SR. Patient with Linq monitor in place, will interrogate, it was not performed in the ER.
-Patient with known history of paroxysmal atrial flutter, but had previous ablation and no documented recurrence on Linq monitoring and for this reason patient has elected not to take OAC.
-Patient is chronically on DAPT with aspirin and Plavix for his history of CAD including CABG 99 and then multiple PCI's with the last one being 02/04/2024. Plavix is now on hold in anticipation of surgery, but aspirin should be continued throughout
without interruption.
-No exertional chest pain with activities prior to admission and no resting chest pain. No acute ischemic changes on ECG.
-Recommend perioperative telemetry monitoring
-Recommend maintaining Hgb greater than 8
-Outpatient dose of beta-krishna in the form of Toprol-XL 50 mg BID should be continued and would lower dose for hypotension as needed
[2025-05-24 08:13] LABS: Hematocrit 38.8 % (39.0-52.0); Hemoglobin 13.5 g/dL (13.0-18.0); Mean Corp Hgb Conc. 34.8 g/dL (33.0-37.0); Mean Corpuscular Volume 93.0 fL (80.0-94.0); Nucleated Red Blood Cells % 0 % (-); Platelet Count 144 10^3/uL (130-400); Red Cell Dist. Width 13.0 % (11.5-14.5)
[2025-05-24] MEDS: NSS 1000 IV (08:16)
[2025-05-24 08:27] LABS: ALT (SGPT) 12 U/L (0-50); AST (SGOT) 21 U/L (17-59); Albumin 3.5 g/dl (3.5-5.0); Alkaline Phosphatase 72 U/L (38-126); Blood Urea Nitrogen 7 mg/dl (9-20); Calcium 8.4 mg/dl (8.4-10.2); Carbon Dioxide 26 mmol/L (22-30); Chloride 104 mmol/L (98-107); Estimated Creatinine Clearance 95 ml/min; Glucose 86 mg/dl (70-99); Potassium 3.9 mmol/L (3.5-5.1); Sodium 135 mmol/L (135-145); Total Protein 6.5 g/dl (6.3-8.2); eGFR > 60.00
[2025-05-24] MEDS: PROTONIX 40 MG PO (08:27)
[2025-05-24] MEDS: TOPROL XL PO (09:48)
[2025-05-24] MEDS: PLAQUENIL PO (09:48)
[2025-05-24] MEDS: ASPIR LOW (ENTERIC COATED) PO (09:48)
[2025-05-24] MEDS: ZOSYN 50 IV ×2 (09:49→20:14)
--- NOTE | 2025-05-24 10:34 | W.PN.GS2 ---
Today's Communication / Plan
-
-- Laparoscopic appendectomy
Assessment / Plan
-
Patient is a 69 yo M p/w acute appendicitis.
AVSS
Labs notable for normalized WBC
Options for management including continued medical management with antibiotics versus surgical management with appendectomy were considered and discussed. The pros and cons of both approaches was discussed. We specifically discussed failure of
medical management and surgical risks. He is at increased risk for surgical complications including bleeding with his antiplatelet medications and anesthesia related to his cardiac risk profile. Cardiology evaluation and risk assessment. Stable
and cleared for the OR. Patient would like to proceed with surgical intervention.
Plan for a laparoscopic appendectomy. The procedure itself, as well as the risks, benefits, and alternatives was discussed. Specifically, we discussed the risks of bleeding, infection, injury to surrounding structures (bowel, bladder), need for
open procedure, and general anesthetic risks. Typical postprocedural recovery including pain management and the need for 2 to 3 weeks no heavy lifting or strenuous activities was discussed. All questions answered. Consent signed.
-- Laparoscopic appendectomy
-- NPO, IVF
-- Antibiotics: Zosyn
Subjective Data
-
Date of Service: May 24, 2025
Reports worsening pain localized to the RLQ. No fevers. No nausea or emesis. No chest pain or SOB. No dizziness or lightheadedness.
Objective Data
-
Intake and Output
05/23/25 05/24/25 05/25/25
06:59 06:59 06:59
Intake Total 800 / 800
Balance 800 / 800
Intake:
IV fluids (Total) 800 / 800
Other:
Number of approximated MODERATE 3
amounts of urine
Vital Signs
Temp Pulse Resp BP Pulse Ox
97.9 F 58 18 117/61 97
05/24/25 07:39 05/24/25 07:39 05/24/25 07:39 05/24/25 07:39 05/24/25 07:39
Lab Results
05/24/25 07:14
05/24/25 07:14
Calcium 8.4 mg/dl (8.4-10.2) 05/24/25 07:14
Total Bilirubin 0.9 mg/dl (0.2-1.3) 05/24/25 07:14
AST 21 U/L (17-59) 05/24/25 07:14
ALT 12 U/L (0-50) 05/24/25 07:14
Alkaline Phosphatase 72 U/L (38-126) 05/24/25 07:14
Total Protein 6.5 g/dl (6.3-8.2) D 05/24/25 07:14
Albumin 3.5 g/dl (3.5-5.0) 05/24/25 07:14
Physical Exam
-
Gen: NAD
Abd: soft, tender in RLQ, ND, localized peritonitis
Patient has a snow catheter: No
Patient has a central line: No
--- NOTE | 2025-05-24 10:46 | W.SUR.PREOP ---
Pre-Operative Surgical Note
-
I have examined this patient prior to the performance of the scheduled procedure.
The patient's condition is unchanged from the time of the current History and
Physical and the patient is able to undergo the scheduled procedure.
--- NOTE | 2025-05-24 13:27 | W.PN.HOSP.TC ---
Today's Communication/Plan
-
OR planned
Continue AB
Assessment / Plan
Assessment / Plan
69-year-old man with abdominal pain
CT abdomen pelvis shows 3 Ramos appendix fecalith, gallbladder slightly distended 8 mm, mild adjacent/surrounding inflammatory soft tissue stranding highly concerning for appendicitis
Echo 02/05/2024-EF 55 to 60%, grade 2 diastolic dysfunction, basal inferior wall and basal inferoseptal hypokinesis. Mitral valve thickened and physiological MR
Patient was seen earlier today in the morning. Late documentation
Patient is awake and alert
Cardiovascular system S1-S2 appreciated, short systolic murmur at apex
Chest clear to auscultation
Abdomen right lower quadrant tenderness present
No pedal edema
# Acute appendicitis
Urgent surgery
Patient has a slightly high risk given vascular disease as well as cardiac disease.
Cardiology evaluated the patient .Patient has more pain since yesterday proceed with surgery as long as patient understands the risks which I explained to him. He is also aware that he is at high risk for bleeding given Plavix on board. He wishes
to proceed.
Discussed with surgeon
Continue IV antibiotics-Zosyn
Hold Plavix
Keep n.p.o. with IV fluids
General Surgery consulted and following
# Coronary disease with history of CABG multiple stents and recent stent was 1 year ago
Hold Plavix, continue aspirin
# Bilateral carotid artery stenosis 70% On the right and 50% on the left
Hold Plavix, continue aspirin
History of TIA
Discussed with vascular. Outpatient follow-up
# Peripheral disease-
Right JAMES 0.85, TBI 0.57 high-grade stenosis within the right distal SFA more than 75%.
Left JAMES 1.09, left TBI 0.94 high-grade stenosis within the left distal SFA, estimated more than 75%
Infrapopliteal disease on both side
Discussed with vascular. Outpatient follow-up
# Paroxysmal atrial flutter with history of ablation
Not on anticoagulation due to decreased burden as well as patient's choice. Linq monitor in place
# Hypertension-continue metoprolol
# Hyperlipidemia/Atherosclerosis-on Repatha
# Recent syncopal episodes in the past year
# Rheumatoid arthritis-continue Plaquenil
# Enlarged prostate-continue Flomax
# IBS-hold Trulance
# Depression-continue Remeron
# Bilateral inguinal hernias
# L1-2 degenerative disc disease.
# Ex-smoker
# DVT prophylaxis-Lovenox
# Full code
D/W RN
Patient denies daily alcohol use. He states that he only drinks occasionally.
Discussed with cardiology
Discussed with vascular
Discussed with surgeon
Time spent more than 50 minutes
Part of this note was created using voice recognition system. Occasional wrong word or��sound alike� substitutions may have inadvertently occurred due to the inherent limitations of voice recognition software. If noted kindly bring it to my
attention for correction.
Anticipated Discharge: > 48 hours
Subjective/Interval History
-
Date of Service: May 24, 2025
Objective Data
-
Labs:
Laboratory Results
05/24/25
07:14
WBC 10.2
Hgb 13.5
Hct 38.8 L
Plt Count 144 D
Sodium 135
Potassium 3.9
Chloride 104
Carbon Dioxide 26
BUN 7 L
Creatinine 0.8
Glucose 86
Calcium 8.4
Total Bilirubin 0.9
AST 21
ALT 12
Alkaline Phosphatase 72
Vital Signs:
Vital Signs
Temp Pulse Resp BP Pulse Ox
98.9 F 70 18 139/68 96
05/24/25 11:07 05/24/25 11:07 05/24/25 11:07 05/24/25 11:07 05/24/25 11:07
I&O
05/23/25 05/24/25 05/25/25
06:59 06:59 06:59
Intake Total 800 / 800
Balance 800 / 800
[2025-05-24] MEDS: ZOSYN IV (13:38)
--- NOTE | 2025-05-24 13:57 | W.IMMPOSTOP ---
Surgical Immed Post Op Note
-
Primary Surgeon: Vanessa
Assisting Surgeon: None
Pre-op Diagnosis: Laparoscopic appendectomy
Post-op Diagnosis: Laparoscopic appendectomy
Procedure Performed: Acute appendicitis
Anesthesia Type: General
Specimen / Cultures:
1. Appendix
Estimated Blood Loss: 3 cc
Complications: None
Operative Findings:
1. Inflamed and dilated appendix, ecchymotic and slight gangrenous changes at proximal 1/3, no perforation
2. Mesentery with Ligasure, base with alejo load stapler
3. Hemostasis well maintained throughout case
[2025-05-24] MEDS: ZOFRAN 4 MG IV (14:38)
[2025-05-24] MEDS: NORMOSOL-R/PLASMALYTE-A 1000 IV (15:26)
--- NOTE | 2025-05-24 15:30 | PTCARENOTE ---
Received patient form OR. VSS WNL.. Incisions on patient's abdomen intact. Can make needs known. Plan of care ongoing.
--- NOTE | 2025-05-24 16:43 | CM ---
Met with patient to obtain information for assessment. Patient's was at bedside. Patient's stated that patient lives with her in a two story home with one step to enter. He is independent with his ADL, personal care, dressing and bathing.
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 He can drive and can get himself to his appointments and he does his own shopping. He has no DME. He had never had VN services. He has not been to a SNF.
Patient has a prescription plan and uses, [facility] in [place] for all of his medications.
Patient's PCP is, Lisa Street.
Plan: Case management will continue to follow and assist with discharge planning. Home when stable.
[2025-05-24] MEDS: LOVENOX 40 MG SC (17:26)
[2025-05-24] MEDS: TOPROL XL 50 MG PO (20:13)
[2025-05-24] MEDS: REMERON 15 MG PO (20:36)
[2025-05-24] MEDS: FLOMAX 0.4 MG PO (20:36)
[2025-05-25] MEDS: ZOSYN 50 IV ×2 (02:49→08:49)
[2025-05-25] MEDS: TYLENOL 650 MG PO (03:32)
[2025-05-25 03:55] VITALS: BP 120/61
[2025-05-25] MEDS: NORMOSOL-R/PLASMALYTE-A 1000 IV (04:21)
[2025-05-25 08:02] VITALS: BP 124/65
[2025-05-25 08:21] LABS: Blood Urea Nitrogen 13 mg/dl (9-20); Calcium 8.6 mg/dl (8.4-10.2); Carbon Dioxide 23 mmol/L (22-30); Chloride 106 mmol/L (98-107); Estimated Creatinine Clearance 84 ml/min; Glucose 114 mg/dl (70-99); Magnesium 2.0 mg/dl (1.6-2.3); Potassium 4.2 mmol/L (3.5-5.1); Sodium 137 mmol/L (135-145); eGFR > 60.00
--- NOTE | 2025-05-25 08:25 | W.PN.GS2 ---
Today's Communication / Plan
-
-- OK for DC from surgical perspective, DC instructions updated
-- Hold Plavix for 48 hours post-op
-- Zosyn while in house
Assessment / Plan
-
Patient is a 69 yo M p/w acute appendicitis.
POD#1 s/p laparoscopic appendectomy
AVSS
Labs pending
Recovering well. No postoperative concerns. Discussed that if he has not had a bowel movement within 24 to 48 hours would use MiraLAX. Acute on chronic issue (on Trulance at home)
-- Regular diet
-- Abx: Zosyn while in hospital, none needed on DC
-- Pain control: Tylenol, Oxycodone
-- HLIV
-- Home meds, HOLD on Plavix for 48 hours post-op
-- DVT: Lovenox
Subjective Data
-
Date of Service: May 25, 2025
No complaints. Pain improved, reports some incisional soreness. No nausea or vomiting. Reports passing flatus, no BM. No fevers.
Objective Data
-
Intake and Output
05/24/25 05/25/25 05/26/25
06:59 06:59 06:59
Intake Total 800 / 800 740 / 740
Balance 800 / 800 740 / 740
Intake:
Oral fluids 540 / 540
IV fluids (Total) 800 / 800 200 / 200
Normosal 200 / 200
Other:
Number of approximated MODERATE 3 1
amounts of urine
Number of approximated LARGE 3
amounts of urine
Vital Signs
Temp Pulse Resp BP Pulse Ox
97.5 F 68 18 124/65 98
05/25/25 08:02 05/25/25 08:02 05/25/25 08:02 05/25/25 08:02 05/25/25 08:02
Lab Results
05/25/25 06:56
Calcium 8.6 mg/dl (8.4-10.2) 05/25/25 06:56
Magnesium 2.0 mg/dl (1.6-2.3) 05/25/25 06:56
Total Bilirubin 0.9 mg/dl (0.2-1.3) 05/24/25 07:14
AST 21 U/L (17-59) 05/24/25 07:14
ALT 12 U/L (0-50) 05/24/25 07:14
Alkaline Phosphatase 72 U/L (38-126) 05/24/25 07:14
Total Protein 6.5 g/dl (6.3-8.2) D 05/24/25 07:14
Albumin 3.5 g/dl (3.5-5.0) 05/24/25 07:14
Physical Exam
-
Gen: NAD
Abd: soft, mild tenderness, ND, non-peritoneal, incisions c/d/i - no erythema or drainage, soft ecchymosis at umbilicus
Patient has a snow catheter: No
Patient has a central line: No
[2025-05-25 08:42] LABS: Hematocrit 36.2 % (39.0-52.0); Hemoglobin 13.0 g/dL (13.0-18.0); Mean Corp Hgb Conc. 35.9 g/dL (33.0-37.0); Mean Corpuscular Volume 92.1 fL (80.0-94.0); Platelet Count 178 10^3/uL (130-400); Red Cell Dist. Width 12.7 % (11.5-14.5)
[2025-05-25] MEDS: PLAQUENIL 400 MG PO (08:48)
[2025-05-25] MEDS: TOPROL XL 50 MG PO (08:48)
[2025-05-25] MEDS: ASPIR LOW (ENTERIC COATED) 81 MG PO (08:48)
[2025-05-25] MEDS: PROTONIX 40 MG PO (08:48)
[2025-05-25] MEDS: NORMOSOL-R/PLASMALYTE-A IV (11:11)
[2025-05-25 11:39] VITALS: BP 126/69
--- NOTE | 2025-05-25 14:11 | W.PN.HOSP.TC ---
Addendum entered and electronically signed by Dontae Ott MD 05/25/25 14:24:
Correction okay to resume Plavix on 05/26/2025 per surgeon
Original Note:
Today's Communication/Plan
-
Discharge
Assessment / Plan
Assessment / Plan
69-year-old man with abdominal pain
CT abdomen pelvis shows 3 Ramos appendix fecalith, gallbladder slightly distended 8 mm, mild adjacent/surrounding inflammatory soft tissue stranding highly concerning for appendicitis
Echo 02/05/2024-EF 55 to 60%, grade 2 diastolic dysfunction, basal inferior wall and basal inferoseptal hypokinesis. Mitral valve thickened and physiological MR
Patient was seen earlier today in the morning. Late documentation
Patient is awake and alert
Cardiovascular system S1-S2 appreciated, short systolic murmur at apex
Chest clear to auscultation
Abdomen -laparoscopic wounds stable
Patient denies any pain
# Acute appendicitis
Status post laparoscopic appendectomy by Dr. Mendez on 05/24/2025
Continue IV antibiotics-Zosyn till discharge then discontinue
Hold Plavix, can restart on 05-27-25
Diet started patient seems to be tolerating
# Coronary disease with history of CABG multiple stents and recent stent was 1 year ago
Hold Plavix as above, continue aspirin
# Bilateral carotid artery stenosis 70% On the right and 50% on the left
Hold Plavix as above, continue aspirin
History of TIA
Discussed with vascular. Outpatient follow-up recommended
# Peripheral disease-
Right JAMES 0.85, TBI 0.57 high-grade stenosis within the right distal SFA more than 75%.
Left JAMES 1.09, left TBI 0.94 high-grade stenosis within the left distal SFA, estimated more than 75%
Infrapopliteal disease on both side
Discussed with vascular. Outpatient follow-up
# Paroxysmal atrial flutter with history of ablation
Not on anticoagulation due to decreased burden as well as patient's choice. Linq monitor in place
# Hypertension-continue metoprolol
# Hyperlipidemia/Atherosclerosis-on Repatha
# Recent syncopal episodes in the past year
# Rheumatoid arthritis-continue Plaquenil
# Enlarged prostate-continue Flomax
# IBS-hold Trulance
# Depression-continue Remeron
# Bilateral inguinal hernias
# L1-2 degenerative disc disease.
# Ex-smoker
# DVT prophylaxis-Lovenox
# Full code
D/W RN
Follow-up care was discussed with the patient
More than 30 minutes spent in discharge including
Final examination of the patient
Summarizing hospital stay
Instructions for continuing care to all relevant caregivers
Preparation of discharge records, prescriptions, and referral forms
Total time spent (in minutes): 38 min
Part of this note was created using voice recognition system. Occasional wrong word or��sound alike� substitutions may have inadvertently occurred due to the inherent limitations of voice recognition software. If noted kindly bring it to my
attention for correction.
Anticipated Discharge: Today
Subjective/Interval History
-
Date of Service: May 25, 2025
Objective Data
-
Labs:
Laboratory Results
05/25/25
06:56
WBC 11.9 H
Hgb 13.0
Hct 36.2 L
Plt Count 178 D
Sodium 137
Potassium 4.2
Chloride 106
Carbon Dioxide 23
BUN 13
Creatinine 0.9
Glucose 114 H
Calcium 8.6
Vital Signs:
Vital Signs
Temp Pulse Resp BP Pulse Ox
97.8 F 70 18 126/69 98
05/25/25 11:39 05/25/25 11:39 05/25/25 11:39 05/25/25 11:39 05/25/25 11:39
I&O
05/24/25 05/25/25 05/26/25
06:59 06:59 06:59
Intake Total 800 / 800 740 / 740 360 / 360
Balance 800 / 800 740 / 740 360 / 360
--- NOTE | 2025-05-25 14:24 | W.DS.TRANS ---
Addendum entered and electronically signed by Dontae Ott MD 05/25/25 14:36:
Dictation- [id number]
Original Note:
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
-
Discharge Instructions:
Discharge Diagnosis/Procedures Acute appendicitis -laparoscopic appendectomy
Coronary disease with history of CABG multiple
stents
Bilateral carotid artery stenosis.
PAD
Paroxysmal atrial flutter
Hypertension
Hyperlipidemia
Rheumatoid arthritis
Enlarged prostate
Depression
Diet 2 Gram Sodium
Activity No strenuous activity
Additional Activity No heavy lifting (>20 lbs) or strenuous
activities for 2 to 3 weeks
Driving Restrictions No driving issues for taking narcotics
Bathing Restrictions OK to Shower
Wound Care Keep incisions clean and dry. Glue will flake
off in 2 to 3 weeks. Stitches will dissolve.
Use ice to the abdomen to reduce any bruising or
swelling.
Instructions:
Stand-Alone Forms:
Changes to Home Medications: Yes
Discharge Medications:
DC Medications w/original date entered in [facility]
ondansetron 4 mg disintegrating tablet 4 mg PO Q8H PRN nausea and vomiting 4 days #10 tabs 11/27/22
Repatha Syringe IM Autoimmune Disorder 05/23/25
aspirin 81 mg tablet,delayed release 81 mg PO DAILY Blood Clot Prevention/Tx 05/23/25
clopidogrel 75 mg tablet (Plavix) 75 mg PO DAILY Blood Clot Prevention/Tx 05/23/25
Held on 05/25/25. Instructions: Resume on 05/26/25.
hydroxychloroquine 200 mg tablet 400 mg PO DAILY Autoimmune Disorder 05/23/25
metoprolol succinate 50 mg tablet,extended release 24 hr (Toprol XL) 50 mg PO BID Blood Pressure 05/23/25
mirtazapine 15 mg tablet 15 mg PO HS Depression 05/23/25
plecanatide 3 mg tablet (Trulance) 3 mg PO DAILY Diabetes 05/23/25
tamsulosin 0.4 mg capsule (Flomax) 0.4 mg PO HS Urinary Issue 05/23/25
acetaminophen 325 mg tablet 650 mg (2 x 325 mg) PO Q4HPRN PRN mild pain #1 tab 05/24/25
oxycodone 5 mg tablet 5 mg PO Q4HPRN PRN breakthrough/severe pain #10 tabs 05/24/25
pantoprazole 40 mg tablet,delayed release (Protonix) 40 mg PO DAILY Gastrointestinal issue #20 tabs 05/25/25
Home Medication Changes
new
acetaminophen 325 mg tablet 650 mg (2 x 325 mg) PO Q4HPRN PRN mild pain #1 tab 05/24/25
oxycodone 5 mg tablet 5 mg PO Q4HPRN PRN breakthrough/severe pain #10 tabs 05/24/25
Pending Results: Yes (path)
[2025-05-25] MEDS: ZOSYN IV (14:53)
[2025-05-25] MEDS: MYLICON 80 MG PO (14:54)
--- NOTE | 2025-05-25 15:13 | W.PN.CARDCBS ---
Addendum entered and electronically signed by Alexandre Haque MD 05/25/25 17:17:
I saw and examined the patient.
The Millinery Blocker's note was reviewed and I agree with the note.
Comment: GEN: No distress, awake, Ox3
HEENT: supple, anicteric, mmm
LUNGS: CTA, no wheezes/rales
CV: Reg, S1/S2, 1/6 syst LSB, no gallop
ABD: soft, BS+, NT/ND
EXT: No edema
NEURO: Gross non-focal
SKIN: No rash
Plan:
Overall doing well status post appendectomy. Continue medical therapy for coronary artery disease.
Continue aspirin and resume Plavix over the next 24 hours.
Okay for discharge and to follow-up with Dr. Lord.
Original Note:
Today's Communication / Plan
-
Resume Plavix 05/26/25 per cardiology
f/u with Dr. Lord
Impression / Plan
-
PCP: Dr. Lisa Meeks
Cardiology: Dr. Lord
Impression:
Admitted with abdominal pain and acute appendicitis 05/15/2025
Acute appendicitis
CAD
s/p CABG with COV[place] to mid LAD, other grafts unknown 1998
s/p proximal to mid [place] RCA PCI no stent name or dimension listed in available record 02/04/24
Cardiac cath 02/04/2024 with patent COV[place] to mid LAD and no other patent grafts were visualized on supravalvular aortogram
Hyperlipidemia
HTN
Right ICA disease, greater than 70% by carotid U/S 03/2025
PAD with claudication
Paroxysmal typical atrial flutter without recurrence following ablation at unknown date
Not chronically anticoagulated due to lack of recurrence of atrial arrhythmia and patient choice
Linq monitor in place
Echo 02/05/2024: EF 55 to 60%, grade 2 diastolic dysfunction, basal and mid inferior wall and basal inferoseptal hypokinesis, mitral valve thickened with physiologic MR
Plan:
-Patient had laparoscopic appendectomy 05/24/2025 and reports that he feels much better on 05/25/2025.
-No complaints of chest pain and aspirin was continued throughout. Patient is allowed to resume Plavix on 05/26/2025.
-Patient is chronically on DAPT with aspirin and Plavix for his history of CAD including CABG in 1998 and then multiple PCI's with the last one being 02/04/2024.
-Telemetry reviewed by me looks like SR.
-Patient with known history of paroxysmal atrial flutter, but had previous ablation and no documented recurrence on Linq monitoring and for this reason patient has elected not to take OAC.
-Outpatient dose of Toprol-XL 50 mg BID should be continued.
-Patient will follow-up with his primary indoor plant technician, Dr. Lord.
HPI: Patient came to the ER yesterday with abdominal pain and was admitted with acute appendicitis and cardiology is consulted for preoperative evaluation and also at patient request. Patient reports that his father with complications
from appendicitis and so when he started with abdominal pain he was concerned and came to the ER. Imaging reveals appendicitis and there was discussion about medical management versus surgical intervention. Patient now feels he would like surgical
intervention, cardiology consultation requested for preoperative risk factor stratification. Patient used to follow with a indoor plant technician at [facility], Dr. Tony Wilkinson, who retired and patient elected to begin following with Dr. Beltre "Tressa"roseanne for long-term cardiology care and was seen by him as an initial visit in the office on 03/18/2025. At that time they reviewed his cardiac history and set BP and cholesterol goals. Patient was recommended to stay on aspirin 81 mg daily lifelong
therapy and Plavix 75 mg daily, he has been on DAPT for more than 1 year given his history of CABG and multiple percutaneous interventions with the last one being on 02/04/2024. 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 No resting chest pain or shortness of breath.
Progress Note - Communications Assistant
Subjective
Date of Service: May 25, 2025
Feels well, much better than yesterday
Objective
Labs:
05/25/25 06:56
05/25/25 06:56
Labs
Hgb 13.0 g/dL (13.0-18.0) 05/25/25 06:56
Hct 36.2 % (39.0-52.0) L 05/25/25 06:56
Plt Count 178 10^3/uL (130-400) D 05/25/25 06:56
Sodium 137 mmol/L (135-145) 05/25/25 06:56
Potassium 4.2 mmol/L (3.5-5.1) 05/25/25 06:56
BUN 13 mg/dl (9-20) 05/25/25 06:56
Creatinine 0.9 mg/dL (0.7-1.3) 05/25/25 06:56
Glucose 114 mg/dl (70-99) H 05/25/25 06:56
Troponins
05/23/25
13:22
Troponin I 0.015
Vital Signs and I&O:
Vital Signs
Temp Pulse Resp BP Pulse Ox
97.8 F 70 18 126/69 98
05/25/25 11:39 05/25/25 11:39 05/25/25 11:39 05/25/25 11:39 05/25/25 11:39
Vital Signs
Temp Pulse Resp BP Pulse Ox
97.8 F 70 18 126/69 98
05/25/25 11:39 05/25/25 11:39 05/25/25 11:39 05/25/25 11:39 05/25/25 11:39
Intake & Output
05/23/25 05/24/25 05/25/25 05/26/25
06:59 06:59 06:59 06:59
Intake Total 800 / 800 740 / 740 360 / 360
Balance 800 / 800 740 / 740 360 / 360
Physical Exam
Physical Exam
GEN: NAD. AAOx3
LUNGS: RA.
CV: SR on tele.
[2025-05-25 15:38] VITALS: BP 150/73
== END 2025-05-25 15:57 | disposition home or self-care (01) | DRG 398 ==
LOC: 4 EAST ACU 18:46
PROVIDERS: Emergency Medicine; ADMITTING PHYSICIAN Hospitalist; ATTENDING PHYSICIAN Hospitalist; CONSULT PHYSICIAN Surgery; EMERGENCY PHYSICIAN Emergency Medicine; FAMILY PHYSICIAN Family Medicine; OTHER PHYSICIAN Internal Medicine Cardiovascular Disease
PROC: 0DTJ4ZZ Resection of Appendix, Percutaneous Endoscopic Approach (ICD-10-PCS; 2025-05-24)
DX: K35.891 Other acute appendicitis without perforation, with gangrene (principal); I48.3 Typical atrial flutter; J84.9 Interstitial pulmonary disease, unspecified; I25.10 Atherosclerotic heart disease of native coronary artery without angina pectoris; I65.23 Occlusion and stenosis of bilateral carotid arteries; I10 Essential (primary) hypertension; E78.00 Pure hypercholesterolemia, unspecified; M06.9 Rheumatoid arthritis, unspecified; N40.0 Benign prostatic hyperplasia without lower urinary tract symptoms; F32.A Depression, unspecified; I73.9 Peripheral vascular disease, unspecified; H40.9 Unspecified glaucoma; K38.1 Appendicular concretions; K21.9 Gastro-esophageal reflux disease without esophagitis; K58.9 Irritable bowel syndrome, unspecified; I49.3 Ventricular premature depolarization; M51.369 Other intervertebral disc degeneration, lumbar region without mention of lumbar back pain or lower extremity pain; Z95.1 Presence of aortocoronary bypass graft; Z95.5 Presence of coronary angioplasty implant and graft; Z86.73 Personal history of transient ischemic attack (TIA), and cerebral infarction without residual deficits; Z90.49 Acquired absence of other specified parts of digestive tract; Z79.82 Long term (current) use of aspirin; Z79.02 Long term (current) use of antithrombotics/antiplatelets; I25.2 Old myocardial infarction; Z87.891 Personal history of nicotine dependence
CPT/HCPCS: 74022; 74177; 80048; 80053; 83690; 83735; 83880; 84484; 85025; 85027; 87040; 88304; 93005; 96365; 96375; 99285; Q9967

== ENCOUNTER → 2025-06-09 12:37 | Outpatient (REF) | payer MEDICARE, OTHER, SELFPAY | LOC: RAD 12:37 | PROVIDERS: ATTENDING PHYSICIAN Surgery Vascular Surgery; FAMILY PHYSICIAN Family Medicine; REFERRING PHYSICIAN Internal Medicine Cardiovascular Disease | DX: I65.21 Occlusion and stenosis of right carotid artery (principal) | CPT/HCPCS: 70496; 70498; Q9967 ==

== ENCOUNTER 2025-06-23 12:57 | Inpatient (IN) | payer MEDICARE, OTHER, SELFPAY ==
[2025-06-23 11:26] VITALS: BP 130/78
--- NOTE | 2025-06-23 12:09 | HPS.HSE ---
Family Physician
-
Family Physician:
Chief Complaint
-
left facial numbness
off balance
History of Present Illness
69-year-old with past medical history for hypertension, hyperlipidemia, ILD, rheumatoid arthritis, carotid stenosis, cardiac stents presented to us with left facial numbness, expressive aphasia, headache and dizziness intermittently since yesterday.
Patient stated off balance. Patient was evaluated by vascular physician today who sent him to ER. Patient denied any fever, chills, cough, congestion. Patient denied any chest pain or short of breath. Patient denied any abdominal pain, nausea,
vomiting or diarrhea. Patient denied dysuria hematuria.
Admitting for further management
Medical History
Past Medical History
Past Medical History: Reports Other
Additional Past Medical History:
HTN
HLD
ILD
RA
Carotid stenosis
Past Surgical History: Reports Other
Additional Past Surgical History:
quad bypass
cardiac stents
cholecystectomy
loop recorder
lap appendectomy
Social History
Tobacco: Former Smoker
Alcohol: None
Drug: None
Personal:
Living: With Family
Family History
Family History: Not pertinent
Allergies / Home Medications
Allergies reflects when Allergies were last updated in [facility].
Home Medications with original date entered in [facility]
Allergy/Medication List:
Allergies
Allergy/AdvReac Type Severity Reaction Status Date / Time
latex Allergy Rash Verified 06/23/25 11:25
Home Medications
ondansetron 4 mg disintegrating tablet 4 mg PO Q8H PRN nausea and vomiting 4 days #10 tabs 11/27/22
Repatha Syringe IM Autoimmune Disorder 05/23/25
aspirin 81 mg tablet,delayed release 81 mg PO DAILY Blood Clot Prevention/Tx 05/23/25
clopidogrel 75 mg tablet (Plavix) 75 mg PO DAILY Blood Clot Prevention/Tx 05/23/25
Held on 05/25/25. Instructions: Resume on 05/26/25.
hydroxychloroquine 200 mg tablet 400 mg PO DAILY Autoimmune Disorder 05/23/25
metoprolol succinate 50 mg tablet,extended release 24 hr (Toprol XL) 50 mg PO BID Blood Pressure 05/23/25
mirtazapine 15 mg tablet 15 mg PO HS Depression 05/23/25
plecanatide 3 mg tablet (Trulance) 3 mg PO DAILY Diabetes 05/23/25
tamsulosin 0.4 mg capsule (Flomax) 0.4 mg PO HS Urinary Issue 05/23/25
acetaminophen 325 mg tablet 650 mg (2 x 325 mg) PO Q4HPRN PRN mild pain #1 tab 05/24/25
oxycodone 5 mg tablet 5 mg PO Q4HPRN PRN breakthrough/severe pain #10 tabs 05/24/25
pantoprazole 40 mg tablet,delayed release (Protonix) 40 mg PO DAILY Gastrointestinal issue #20 tabs 05/25/25
Review of Systems
-
Constitutional: Reports No Symptoms
EENT: Reports No Symptoms
Respiratory: Reports No Symptoms
Cardiac: Reports No Symptoms
Abdomen/GI: Reports No Symptoms
: Reports No Symptoms
Musculoskeletal: Reports No Symptoms
Skin: Reports No Symptoms
Neurological: Reports Numbness (left facial numbness) and Other
Endocrine: Reports No Symptoms
Hematologic/Lymphatic: Reports No Symptoms
Psych: Reports No Symptoms
Physical Exam
Vital Signs
Vital Signs
Temp Pulse Resp BP Pulse Ox
98.2 F 70 16 130/78 99
06/23/25 11:26 06/23/25 11:26 06/23/25 11:26 06/23/25 11:26 06/23/25 11:26
Physical Exam
General: Well Developed, Well Nourished and No Apparent Distress
HEENT: NormoCephalic, Moist mucous membranes and Atraumatic
Respiratory: Clear
Cardiac: S1/S2 and Regular Rhythm; No Murmur or Rub
GI: Soft, Non Tender, Non Distended and Normal Bowel Sounds; No Organomegaly
Rectal: Deferred by Provider
Musculoskeletal: No Clubbing, No Cyanosis and No Edema
Skin: No Rash
Neuro: AO x 3 and Nonfocal/grossly intact
Psych: Calm
Data Reviewed
-
CT Scan: Report Reviewed by me
Lab Data: Labs Reviewed by me
Impression/Plan
-
#b/l carotid stenosis
-vascular consulted
-plan for OR tomorrow
-will keep NPO after MN
-continued asa
-will hold Plavix until hear from vascular
-speech eval
-head neck CTA (06/09) with the impression of here is multifocal mild/moderate stenosis of the right intracranial ICA. There is multifocal stenosis of the left intracranial ICA with severe stenosis of the proximal cavernous segments secondary to
mixed density atherosclerotic plaque.CTA Neck: There is high-grade narrowing of the bilateral carotid bifurcations. On the right there is near total occlusion (greater than 90% stenosis) of the proximal ICA secondary to predominantly noncalcified
atherosclerotic plaque. On the left there is partially 70% stenosis of the proximal ICA secondary to predominantly calcified atherosclerotic plaque..
-head Ct with no acute findings.
# Coronary disease with history of CABG multiple stents
-on asa and Plavix
# Peripheral disease
Right JAMES 0.85, TBI 0.57 high-grade stenosis within the right distal SFA more than 75%.
Left JAMES 1.09, left TBI 0.94 high-grade stenosis within the left distal SFA, estimated more than 75%
Infrapopliteal disease on both side
Discussed with vascular. Outpatient follow-up
# Paroxysmal atrial flutter with history of ablation
# Hypertension-continue metoprolol
# Rheumatoid arthritis-continue Plaquenil and prednisone
# Enlarged prostate-continue Flomax and Tadalafil
# IBS-Trulance
# Depression-continue Remeron and Xanax
# Ex-smoker
# DVT prophylaxis-scd
# Full code
[2025-06-23 12:14] LABS: Hematocrit 41.0 % (39.0-52.0); Hemoglobin 14.2 g/dL (13.0-18.0); Mean Corp Hgb Conc. 34.6 g/dL (33.0-37.0); Mean Corpuscular Volume 94.5 fL (80.0-94.0); Nucleated Red Blood Cells % 0 % (-); Platelet Count 160 10^3/uL (130-400); Red Cell Dist. Width 13.0 % (11.5-14.5)
[2025-06-23 12:32] LABS: Blood Urea Nitrogen 16 mg/dl (9-20); Calcium 8.8 mg/dl (8.4-10.2); Carbon Dioxide 31 mmol/L (22-30); Chloride 103 mmol/L (98-107); Glucose 102 mg/dl (70-99); Potassium 4.5 mmol/L (3.5-5.1); Sodium 136 mmol/L (135-145); eGFR > 60.00
--- NOTE | 2025-06-23 12:41 | ED.GENMED ---
History of Present Illness
General
Chief Complaint: Dizziness
Source: patient
Exam Limitations: none
Time Seen by Provider: 06/23/25 11:43
History of Present Illness
History of Present Illness:
59-year-old male presents with left-sided facial sensory changes. Waxing and waning for 2 days. Also some lightheadedness. Patient had an outpatient CT scan done June 09 that showed a significant occlusion of the right greater than left ICA.
He is unsure how or what symptoms led to this.
Past History
Past History
ED Past Medical History: CAD, CVA, HTN, Hypercholesterolemia, NH and Other (BPH, glaucoma)
ED Past Surgical History: Cardiac (CABG), Cholecystectomy and Urological
Social History
Tobacco: Former smoker
Alcohol: None
Drug: None
Personal:
Living: with family
Employment: Retired
Family History
Family History: Other
Review of Systems
Review of Systems
All Other Systems: Not applicable
Respiratory: Reports no symptoms
Cardiac: Reports no symptoms
Phy Exam
Physical Exam
Physical Exam:
GENERAL: Alert and oriented in no apparent distress
EYE: Orbits normal.
NECK: Supple
ENT: Pharynx without erythema
CARDIAC: Regular rate and rhythm without any obvious murmurs.
LUNGS: Clear breath sounds,normal
ABDOMEN: Soft, without focal tenderness or distention
NEUROLOGICAL: Alert and oriented , some subjective paresthesias to the left face. Questionable very minimal left facial droop. Jblnmy-[id number]-yern normal. Speech normal. Good division head. Strength normal.
SKIN: Warm and dry, no rash or lesion, no discoloration, skin intact.
MUSCULOSKELETAL: No edema,no deformity.Good color
PSYCH: Normal and appropriate interaction.
Course
Orders/Labs/Results
Orders:
Orders
06/23/25 11:43
CT Head W/o Iv Contrast Urgent
Comment:
Reason For Exam: Dizziness
Cardiac Monitoring- Treatment ONCE
IV Insert/Care/Rem.- Treatment PRN
06/23/25 11:44
Electrocardiogram (*1) Stat
Reason for Study: Other
Other Reason for Exam: neuro symptoms
EKG- Treatment ONCE
06/23/25 12:07
Basic Metabolic Panel Urgent
Complete Blood Count/With Diff Urgent
06/23/25 12:36
Admit/Transfer Patient As Directed
Co-Sign Provider:
Level of Care: Inpatient admission
Assign to:: Medical/Surgical
Physician / Group: erma
Diagnosis: b/l carotid stenosis
Reason for Hospitalization: b/l carotid stenosis
Expected length of stay greater than two midnights?: Yes
ELOS- Estimated Length of Stay in days: 3
I certify the patient meets the requirements for IP care: Yes
PRN Pain Medication Management As Directed
May give lesser potent ordered pain med per pt: Yes
preference::
Protocol:: Medication orders for pain may be administered in a
manner that supports deferring to patient preference
when the pt is:
- Requesting an ordered lesser potent pain medication.
Least to most potent pain medications are defined
as: acetaminophen < NSAID < tramadol < opioids
(morphine, oxycodone, hydromorphone).
- Requesting a lesser dose of the same medication IF
ORDERED.
- Requesting a less intrusive route of administration
if both routes are prescribed by the provider (PO <
IV).
06/23/25 12:38
Code Status As Directed
Resuscitation Status: Full Code
Abnormal Lab Results
06/23/25
12:07
RBC 4.34 L 10^6/uL
(4.70-6.10)
MCV 94.5 H fL
(80.0-94.0)
MCH 32.7 H pg
(27.0-31.0)
Absolute Neuts (auto) 6.6 H 10^3/uL
(1.4-6.5)
Absolute Lymphs (auto) 0.9 L 10^3/uL
(1.2-3.4)
Neutrophils % 79.9 H %
(42.2-75.2)
Lymphocytes % 10.9 L %
(20.5-51.1)
Carbon Dioxide 31 H mmol/L
(22-30)
Glucose 102 H mg/dl
(70-99)
06/23/25 12:07
06/23/25 12:07
Vital Signs
Initial and Last Documented VS:
Initial Vital Signs
Temp Pulse Resp BP Pulse Ox
98.2 F 70 16 130/78 99
06/23/25 11:26 06/23/25 11:26 06/23/25 11:26 06/23/25 11:26 06/23/25 11:26
Last Documented Vital Signs
Temp Pulse Resp BP Pulse Ox
98.2 F 55 15 130/78 100
06/23/25 11:26 06/23/25 12:15 06/23/25 12:15 06/23/25 11:26 06/23/25 12:43
MDM/Problems Addressed
Differential Diagnosis Includes:
Patient describing subacute mild neurologic symptoms with significant carotid stenosis. Warrants inpatient management and definitive care. Discussed with vascular surgery hospitalist and neurology
*Radiology
Radiology exam reviewed: radiology read reviewed (Negative)
*Pulse Oximetry
SaO2: 100
Oxygen Mode of Delivery: Room air
Patient hypoxic: no
*EKG
Interpreted by ED Provider?: Yes
Interpretation: abnormal
Comparison EKG: changes noted
Heart Rate: 54
Rate: bradycardiac
Rhythm: sinus
[place]: normal axis
Interval: normal interval
QRS Pattern: normal QRS
Ischemia: non-specific ST changes
*Critical Care Note
Total Time (30-74mins, 75-104mins- exclusive of procedures): Not Applicable
Data Reviewed
Review of Other/Old Records Reveals: Labs, Records and Radiology Studies
ED Attending Note
-
Portions of this chart may have been created with voice recognition software.� Occasional wrong word or��sound alike� substitutions may have occurred due to the inherent limitations of voice recognition software.
Discharge Plan
Departure
Patient Disposition: Admit
Date of Disposition: 06/23/25
Time of Disposition: 12:45
Presentation/result/management discussed w/ accepting MD/DO: Vascular surgery/neurolog
Discharge Problem:
CVA/TIA, Critical bilateral carotid stenosis
Interventions
Interventions:
*Risk Screen - Suicide Last Done: 06/23/25 11:26
*General Assessment Last Done: 06/23/25 12:00
*Neglect/Abuse Screening Last Done: 06/23/25 11:26
*ED- Fall Risk Assessment Last Done: 06/23/25 12:00
*ED COVID-19 Vaccine History Last Done: 06/23/25 12:00
ED- Neurological Assessment Last Done: 06/23/25 12:00
ED- Cardiac Assessment Last Done: 06/23/25 12:13
--- NOTE | 2025-06-23 13:20 | W.PN.UPDATE ---
Update Note
Progress Note Update
This is an addendum for H&P written by CARDIOVASCULAR SONOGRAPHER Jeanne Garcia
I saw and examined the patient.
The CARDIOVASCULAR SONOGRAPHER's note was reviewed and I agree with the note.
Comment:
Mr. Brent Daley is a 69 yo man with hx CAD s/p CABG (1998) and multiple PCI (02/17), HTN, HLD, bilateral ICA disease, paroxysmal afib (not on AC per patient choice) presents to the ER with left sided facial numbness/tingling.
Triage VS: T 98.2, P 70, RR 16, BP 130/78, SpO2 99%
On exam patient is AAO x 3, conversant, mild left facial asymmetry/ no pronator drift, 5/5 strength lower extremiteis
LABS: WBC 8.3, Hg 14.2, PLT 160, Na 136, K+ 4.5, Cl 103, BUN 16, Cr 1.0, Glucose [address]
IMPRESSION:
No acute intracranial abnormality noted.
HEAD NECK CTA 06/09/25
IMPRESSION:
CT Brain: No acute intracranial process. Mild senescent changes.
CTA Head: There is multifocal mild/moderate stenosis of the right intracranial ICA. There is multifocal stenosis of the left intracranial ICA with severe stenosis of the proximal cavernous segments secondary to mixed density atherosclerotic plaque.
CTA Neck: There is high-grade narrowing of the bilateral carotid bifurcations. On the right there is near total occlusion (greater than 90% stenosis) of the proximal ICA secondary to predominantly noncalcified atherosclerotic plaque. On the left
there is partially 70% stenosis of the proximal ICA secondary to predominantly calcified atherosclerotic plaque.
There are findings of pulmonary fibrotic interstitial lung disease within the visualized lung [place].
Left Facial Numbness
Known severe ICA stenosis
-admit to telemetry
-NPO after MN for OR
-Vascular surgery aware of admission
-neuro checks
-continue RISK ADJUSTMENT SPECIALIST aspirin, confirming with Vascular ok to continue Plavix
CAD s/p CABG 1998, PCI 2023
Essential HTN - RISK ADJUSTMENT SPECIALIST metoprolol
HLD
Paroxysmal Afib - RISK ADJUSTMENT SPECIALIST metoprolol
BPH - RISK ADJUSTMENT SPECIALIST Tadalafil, Flomax
Anxiety- RISK ADJUSTMENT SPECIALIST Xanax, Mirtazapine
RA arthritis - continue RISK ADJUSTMENT SPECIALIST Plaquenil, daily prednisone, monitor broderick-op blood pressures for need for stress dose steroids
Remainder of plan per CARDIOVASCULAR SONOGRAPHER note
[2025-06-23 14:21] VITALS: BP 130/64
--- NOTE | 2025-06-23 14:21 | W.PN.UPDATE ---
Update Note
Progress Note Update
Patient recently seen in the office, please see Dr. Armando Dominguez's note below. Patient with suspected TIA episodes and high-grade right stenosis, plan for right carotid endarterectomy with Dr. Armando Dominguez tomorrow (06/24/2025). N.p.o. at
midnight.
[2025-06-23 14:22] VITALS: BMI 22.7
--- NOTE | 2025-06-23 15:16 | PTCARENOTE ---
Received pt from ER via stretcher. Pt AAO x3, WHITEHEAD well, denies weakness/dizziness. Ambulatory to bed without assistance. Pt with (+) slight Lt facial droop/slight Lt facial numbness. NIHSS 2. VSS. Placed on telemetry:sinus vic 50's. On room
air- pulse ox 99%, no SOB noted. Abd soft, sl rounded, no dysphagia noted; to start chol lowering diet. Pt aware of NPO past midnight for OR 06/24. Pt DTV; states will void in BR. Resting in bed at present, no c/o. Will continue to monitor.
[2025-06-23 15:38] VITALS: BP 136/68; PULSE 52
[2025-06-23 15:45] VITALS: BP 127/62
--- NOTE | 2025-06-23 18:24 | CON.NEURO ---
Neuro Assessment/Plan
Assessment
69 year old man critical right carotid, I believe his deficit represents a tiny L hemispheric stroke, subcortical as there are no cortical symptoms (neglect)
agree with aspirin 81 and plavix
I don't believe he requires any additional imaging
recommend proceeding with CEA tomorrow, and it is safe for him to get heparin during the surgery.
Consultation
Order
Date of Consultation: 06/23/25
Requesting Provider:
Reason for Consult:
Subjective/Objective
Subjective Data
Date of Service: June 23, 2025
from h&p
69-year-old with past medical history for hypertension, hyperlipidemia, ILD, rheumatoid arthritis, carotid stenosis, cardiac stents presented to us with left facial numbness, expressive aphasia, headache and dizziness intermittently since yesterday.
Patient stated off balance. Patient was evaluated by vascular physician today who sent him to ER. Patient denied any fever, chills, cough, congestion. Patient denied any chest pain or short of breath. Patient denied any abdominal pain, nausea,
vomiting or diarrhea. Patient denied dysuria hematuria.
patient had outpatient CTA show right carotid 99% critical stenosis, and he saw Dr Dominguez in the office yesterday at which time he was having left facial numbness and subjective weakness, which had been happening intermittently x several days. With
suspected TIA, he was advised to come in for urgent thrombectomy tomorrow. Patient reports today his left facial droop is a little worse.
Objective Data
Vital Signs
Temp Pulse Resp BP Pulse Ox
37.2 C 54 18 127/62 99
06/23/25 15:45 06/23/25 15:45 06/23/25 15:45 06/23/25 15:45 06/23/25 16:24
Lab Results
06/23/25 12:07
06/23/25 12:07
Sodium 136 mmol/L (135-145) 06/23/25 12:07
Potassium 4.5 mmol/L (3.5-5.1) 06/23/25 12:07
BUN 16 mg/dl (9-20) 06/23/25 12:07
Glucose 102 mg/dl (70-99) H 06/23/25 12:07
Calcium 8.8 mg/dl (8.4-10.2) 06/23/25 12:07
Patient Allergies
latex Allergy (Verified 06/23/25 14:20)
Rash
Physical Exam
-
NIHSS 1 (L facial droop)
AAOx3, speech clear, language intact
VFF, EOMI, L NL flattening
L pronator drift, trace LUE/LE weakness
Medications
-
Active Medications
Generic Name Dose Route Start Last Admin
Trade Name Freq PRN Reason Stop Dose Admin
Acetaminophen 650 mg 06/23/25 15:07
Acetaminophen 650 Mg Rectal Suppository RECTAL 07/21/25 15:06
Q4HPRN PRN
NAIK, mild pain, or temp >100.4F
Acetaminophen 650 mg 06/23/25 15:07
Acetaminophen 325 Mg Tablet PO 07/21/25 15:06
Q4HPRN PRN
NAIK, mild pain, or temp >100.4F
Alprazolam 0.25 mg 06/23/25 14:03
Alprazolam 0.25 Mg Tablet PO 07/21/25 14:02
DAILY PRN
anxiety
Bisacodyl 10 mg 06/23/25 14:03
Bisacodyl 10 Mg Rectal Suppository RECTAL 07/21/25 14:02
[id number] PRN
constipation
Chlorhexidine Gluconate 15 ml 06/24/25 11:00
Chlorhexidine Oral Rinse 0.12% 15 Ml Cup PO 06/24/25 11:01
ONCE ONE
Clopidogrel Bisulfate 75 mg 06/24/25 08:00
Clopidogrel 75 Mg Tablet PO 07/22/25 07:59
DAILY JANET
Famotidine 40 mg 06/24/25 22:00
Famotidine 20 Mg Tablet PO 07/22/25 21:59
HS JANET
Folic Acid 1 mg 06/24/25 08:00
Folic Acid 1 Mg Tablet PO 07/22/25 07:59
DAILY JANET
Hydroxychloroquine Sulfate 200 mg 06/23/25 20:00
Hydroxychloroquine 200 Mg Tablet PO 07/21/25 19:59
BID JANET
Cefazolin Sodium 2 grams in 10 mls @ 120 mls/hr 06/24/25 11:00
Ancef IV 06/24/25 11:04
PRE PROCEDURE ONE
Latanoprost 1 drop 06/23/25 22:00
Latanoprost 0.005% (Ophthalmic Solution) 2.5 Ml Bottle BOTH EYES 07/21/25 21:59
HS JANET
Loratadine 10 mg 06/24/25 08:00
Loratadine 10 Mg Tablet PO 07/22/25 07:59
DAILY JANET
Metoprolol Succinate 50 mg 06/23/25 20:00
Metoprolol 50 Mg Extended Release Tablet PO 07/21/25 19:59
BID JANET
Mirtazapine 15 mg 06/23/25 22:00
Mirtazapine 15 Mg Regular Release Tablet PO 07/21/25 21:59
HS JANET
Mupirocin 0 applic 06/24/25 11:00
Mupirocin 2% (Ointment) 22 Gram Tube NASAL 06/24/25 11:01
ONCE ONE
Tadalafil 5 Mg 0 mg 06/24/25 08:00
Tablet PO 07/22/25 07:59
DAILY JANET
Non-Formulary Medication 0 mg 06/24/25 08:00
Plecanatide [Trulance] PO 07/22/25 07:59
DAILY JANET
Polyethylene Glycol 17 grams 06/23/25 14:03
Polyethylene Glycol Powder 17 Grams Packet PO 07/21/25 14:02
DAILYPRN PRN
constipation
Prednisone 5 mg 06/24/25 08:00
Prednisone 5 Mg Tablet PO 07/22/25 07:59
DAILY JANET
Senna/Docusate Sodium 1 tablet 06/23/25 14:03
Docusate W/Senna (Amira-Colace) Tablet PO 07/21/25 14:02
BIDPRN PRN
constipation
Tamsulosin HCl 0.4 mg 06/24/25 22:00
Tamsulosin 0.4 Mg Capsule PO 07/22/25 21:59
HS JANET
Home Medications
�Medication �Instructions �Recorded
aspirin 81 mg tablet,delayed 81 mg PO DAILY Blood Clot 05/23/25
release Prevention/Tx
hydroxychloroquine 200 mg tablet 200 mg PO BID Autoimmune Disorder 05/23/25
metoprolol succinate 50 mg 50 mg PO BID Blood Pressure 05/23/25
tablet,extended release 24 hr
(Toprol XL)
mirtazapine 15 mg tablet 15 mg PO HS Depression 05/23/25
plecanatide 3 mg tablet (Trulance) 3 mg PO DAILY Diabetes 05/23/25
tamsulosin 0.4 mg capsule (Flomax) 0.4 mg PO HS Urinary Issue 05/23/25
Magnesium Malate 1250 Mg 1,250 mg PO BID 06/23/25
alprazolam 0.25 mg tablet 0.25 mg PO TIDPRN PRN anxiety 06/23/25
clopidogrel 75 mg tablet 75 mg PO DAILY 06/23/25
coenzyme Q10 100 mg capsule (Co 100 mg PO DAILY 06/23/25
Q-10)
evolocumab 140 mg/mL subcutaneous 140 mg SC Q14D 06/23/25
syringe (Repatha Syringe)
famotidine 40 mg tablet 40 mg PO HS 06/23/25
folic acid 0.8 mg capsule 0.8 mg PO DAILY 06/23/25
latanoprost 0.005 % eye drops 1 drp BOTH EYES HS 06/23/25
loratadine 10 mg tablet 10 mg PO DAILY 06/23/25
prednisone 5 mg tablet 5 mg PO DAILY 06/23/25
tadalafil 5 mg tablet 5 mg PO DAILY 06/23/25
therapeutic multivitamin 1 tab PO DAILY 06/23/25
[2025-06-23 19:26] VITALS: BP 132/63
[2025-06-23] MEDS: PLAQUENIL PO (19:59)
[2025-06-23] MEDS: XALATAN OPHTHALMIC SOLUTION 1 DROP BOTH EYES (21:17)
[2025-06-23] MEDS: FLOMAX 0.4 MG PO (21:17)
[2025-06-23] MEDS: PEPCID 40 MG PO (21:17)
[2025-06-23] MEDS: XANAX 0.25 MG PO (21:17)
[2025-06-23] MEDS: REMERON 15 MG PO (21:17)
[2025-06-23] MEDS: TOPROL XL PO (21:18)
[2025-06-23 23:16] VITALS: BP 117/68
[2025-06-24] VITALS (23 sets, daily range): BP systolic 98–142; BP diastolic 55–78; BMI 22.7
[2025-06-24 07:39] LABS: Hematocrit 43.3 % (39.0-52.0); Hemoglobin 14.8 g/dL (13.0-18.0); Mean Corp Hgb Conc. 34.2 g/dL (33.0-37.0); Mean Corpuscular Volume 95.0 fL (80.0-94.0); Platelet Count 154 10^3/uL (130-400); Red Cell Dist. Width 13.0 % (11.5-14.5)
[2025-06-24 07:50] LABS: INR 1.13; PT 14.8 Sec (11.4-14.6)
[2025-06-24 07:51] LABS: APTT 31.8 Sec (23.4-35.0)
--- NOTE | 2025-06-24 08:02 | W.PN.HOSP.TC ---
Today's Communication/Plan
-
For right CEA today
Assessment / Plan
Assessment / Plan
HPI: 69-year-old with past medical history for hypertension, hyperlipidemia, ILD, rheumatoid arthritis, carotid stenosis, cardiac stents presented to us with left facial numbness, expressive aphasia, headache and dizziness intermittently since
yesterday. Patient stated off balance. Patient was evaluated by vascular physician today who sent him to ER. Patient denied any fever, chills, cough, congestion. Patient denied any chest pain or short of breath. Patient denied any abdominal
pain, nausea, vomiting or diarrhea. Patient denied dysuria hematuria.
#Acute tiny CVA per neurology
#Symptomatic carotid stenosis, right greater than left
Appreciate neurology input, clinically patient has acute tiny CVA, but does not need brain MRI
Appreciate vascular surgery input, for right CEA today
Neurology recommends continuing aspirin and Plavix, okay for heparin drip as well if deemed necessary by vascular surgery
LDL at goal 38, check hemoglobin A1c, check echocardiogram for completeness sake
PT/OT/SPL evals
# Coronary disease with history of CABG multiple stents
Continue aspirin and Plavix
# Peripheral disease
Right JAMES 0.85, TBI 0.57 high-grade stenosis within the right distal SFA more than 75%.
Left JAMES 1.09, left TBI 0.94 high-grade stenosis within the left distal SFA, estimated more than 75%
Infrapopliteal disease on both side
Vascular surgery recommends outpatient follow-up
# Paroxysmal atrial flutter with history of ablation
# Hypertension-continue metoprolol
# Rheumatoid arthritis-continue Plaquenil and prednisone
# Enlarged prostate-continue Flomax
# IBS-Trulance if patient's family is able to bring it in
# Depression-continue Remeron and Xanax
# Ex-smoker
DVT prophylaxis-SCDs
Full code
Total time spent to see the patient on the floor, examine the patient, review data and lab results, discuss treatment plan with patient, nursing staff around 50 minutes.
Physical Exam
General: No acute distress
HEENT: Normocephalic, Atraumatic, EOMI, MMM
Respiratory: Clear to Auscultation bilaterally
Cardiac: Normal S1/S2, Regular Rate and Rhythm
GI: Soft, Nontender, Nondistended, Normal Bowel Sounds
Extremities: No Clubbing, Cyanosis, or Edema
Neuro: Dysarthria noted
Anticipated Discharge: > 48 hours
Subjective/Interval History
-
Date of Service: June 24, 2025
Patient continues to feel left facial numbness, and exhibits dysarthria. No fever, no vomiting. No chest pain, no shortness of breath.
Objective Data
-
Labs:
Laboratory Results
06/24/25
07:09
WBC 6.2
Hgb 14.8
Hct 43.3
Plt Count 154
PT 14.8 H
INR 1.13
APTT 31.8
Sodium Pending
Potassium Pending
Chloride Pending
Carbon Dioxide Pending
BUN Pending
Creatinine Pending
Glucose Pending
Calcium Pending
Vital Signs:
Vital Signs
Temp Pulse Resp BP Pulse Ox
97.6 F 58 16 108/64 98
06/24/25 03:28 06/24/25 03:28 06/24/25 03:28 06/24/25 03:28 06/24/25 03:28
I&O
06/23/25 06/24/25 06/25/25
06:59 06:59 06:59
Intake Total 840 / 840
Balance 840 / 840
[2025-06-24 08:04] LABS: Blood Urea Nitrogen 16 mg/dl (9-20); Calcium 9.1 mg/dl (8.4-10.2); Carbon Dioxide 31 mmol/L (22-30); Chloride 104 mmol/L (98-107); Estimated Creatinine Clearance 69 ml/min; Glucose 105 mg/dl (70-99); HDL Cholesterol 67 mg/dl; LDL Cholesterol, Calculated 38 mg/dl; Potassium 4.0 mmol/L (3.5-5.1); Sodium 139 mmol/L (135-145); Very Low Density Lipoprotein 19 mg/dl (0-30); eGFR > 60.00
[2025-06-24] MEDS: CLARITIN 10 MG PO (08:27)
[2025-06-24] MEDS: PLAQUENIL 200 MG PO ×2 (08:28→21:59)
[2025-06-24] MEDS: FOLVITE 1 MG PO (08:28)
[2025-06-24] MEDS: DELTASONE 5 MG PO (08:28)
[2025-06-24] MEDS: TOPROL XL PO ×2 (08:30→22:01)
[2025-06-24] MEDS: LOW STRENGTH ASPIRIN 81 MG PO (09:11)
[2025-06-24] MEDS: PLAVIX 75 MG PO (09:11)
[2025-06-24] MEDS: XANAX 0.25 MG PO ×2 (10:53→22:22)
[2025-06-24] MEDS: BACTROBAN 2% OINTMENT 1 APPLIC NASAL (13:54)
--- NOTE | 2025-06-24 14:25 | PTCARENOTE ---
Received patient this am AAOX3. Pt NPO for OR. Pt complained of Anxiety. Spoke to Dr.K. López. Pt medicated with Xanax PO with relief. [place] held this am for B/P as per parameters. Pt OOB ambulating in hallway independently with a steady gait.
14:00 Report given to cardiac laboratory animal facility supervisor an pt sent to OR.
[2025-06-24] MEDS: PERIDEX 0.12% ORAL RINSE 15 ML PO (14:30)
[2025-06-24 15:55] LABS: ACT-LR - POC 358 Seconds (116-155)
[2025-06-24 16:50] LABS: ACT-LR - POC 281 Seconds (116-155)
--- NOTE | 2025-06-24 17:34 | OR.RPT ---
Operative Report
Operative Report
Date of Operation: 06/24/2025
Pre Op Diagnosis: Symptomatic high-grade right carotid artery stenosis
Post Op Diagnosis: Symptomatic high-grade right carotid artery stenosis
Procedure: RIGHT carotid endarterectomy with patch angioplasty using bovine pericardium
Surgeon: Armando Dominguez III, MD
Operator Specialist Communications: Julian Zavaleta MD PhD PGY-7
Anesthesia: General
Complications: None
History and Indications for Procedure: 69-year-old male with symptomatic right carotid artery stenosis
Procedure in Detail: Brent Daley was correctly identified and placed supine on the operating table. After adequate induction of anesthesia the right neck was positioned, prepped and draped in the usual sterile fashion. Preoperative antibiotics were
administered. A time out procedure was performed with the nursing and anesthesia staff confirming the patients identity as well as the nature and laterality of the procedure.
The carotid bifurcation was marked with ultrasound at the beginning of the case. The incision was planned accordingly. An incision was made along the anterior border of the right sternocleidomastoid muscle. Electrocautery was used to divide the
subcutaneous tissue and platysma. The carotid sheath was entered with sharp dissection. The internal jugular vein was retracted laterally. The vagus nerve was identified and protected throughout the case. The common carotid artery was identified at
the base of this incision and carefully encircled with a vessel loop. The patient was systemically heparinized. The dissection was continued distally towards the carotid bifurcation. The facial vein was skeletonized, ligated and divided between ties
and clips. The proximal external carotid artery was encircled with a vessel loop. The distal internal carotid artery was encircled with a vessel loop at a soft spot on the artery beyond the plaque. The hypoglossal nerve was identified and protected.
The internal vessel loop was secured followed by the common and external. An arteriotomy was made on the distal common carotid artery with an 11-blade. This was extended proximally and distally with Koch scissors. The arteriotomy was extended
distally through the plaque to an area of normal appearing internal carotid artery. The distal vessel loop was replaced with a short tip hockey-stick type vascular clamp. An endarterectomy was performed with a [place] elevator in the standard
fashion. The proximal extent of the plaque was transected with scissors. The distal end of the plaque in the internal carotid artery was feathered. There was a slight distal intimal flap that was tacked down with a single interrupted 7-0 Prolene
suture along the posterolateral wall. The plaque extending into the external carotid artery was everted. Once the plaque was fully removed the endarterectomy plane was irrigated with heparinized saline and any loose fronds of tissue were removed. A
pre-cut piece of bovine pericardium was sewn in place using a running 6-0 Prolene suture. Prior to the completion of the patch the common carotid was allowed to forward bleed and the external was allowed to back bleed. The area under the patch was
irrigated with heparinized saline to remove any potential thrombus or debris. The anastomosis was completed.
The external vessel loop was released first, followed by the common and then the internal. There was an excellent pulse in the distal internal carotid artery. An excellent quality Doppler signal in the distal internal carotid artery was also
confirmed. The patch suture line was closely inspected for hemostasis and was achieved. Protamine was administered. Hemostasis was achieved in the wound bed. The wound was irrigated with saline solution.
The wound was then closed in layers. Sterile skin glue was applied. The patient awoke from anesthesia with no immediate neuro deficits and was taken to the PACU in stable condition.
Attestation: I was present and responsible for the entire procedure
Signed:
Armando Dominguez III, MD
Vascular Surgery
[facility]
--- NOTE | 2025-06-24 17:50 | W.SUR.POST ---
Surgical Immediate Post Op
Note
Pre Op Diagnosis: Right carotid stenosis
Post Op Diagnosis: Right carotid stenosis
Procedure Performed: RIGHT carotid endarterectomy
Primary Surgeon: Armando Dominguez MD
Secondary Surgeons: Julian Zavaleta MD PhD
Anesthesia: General per anestehsia
Estimated Blood Loss: 20 cc
Fluids: Per anesthesia
Drains/Shunts: None
Specimens/Cultures: Right carotid plaque
Doppler/Duplex/Angio (Y/N): Doppler post op
Complications: None
Operative Findings: Uncomplicated right carotid endarterectomy with patch angioplasty
[2025-06-24] MEDS: DILAUDID 0.5 MG IV ×3 (18:22→20:13)
[2025-06-24] MEDS: ZOFRAN 4 MG IV (18:34)
[2025-06-24] MEDS: NSS 1000 IV (19:38)
--- NOTE | 2025-06-24 21:00 | PTCARENOTE ---
Assumed care of patient from SCRAP CRUSHER. Patient s/p right CEA. Patient with complaints of severe pain to right side of neck. Dilaudid given as ordered. Neuro checks done and confirmed with SCRAP CRUSHER, see flow sheets. Patient AOx3, patient assessed,
vitals obtained, see flow sheets. Call mcgee within reach. left radial A-line in place to monitor BP. SBP goal between 100-165. Will continue to monitor.
[2025-06-24 21:13] LABS: Magnesium 1.9 mg/dl (1.6-2.3)
[2025-06-24] MEDS: PEPCID 40 MG PO (21:59)
[2025-06-24] MEDS: REMERON 15 MG PO (22:00)
[2025-06-24] MEDS: FLOMAX 0.4 MG PO (22:00)
[2025-06-24] MEDS: XALATAN OPHTHALMIC SOLUTION 1 DROP BOTH EYES (22:00)
[2025-06-24 22:10] LABS: Glucose - Point of Care 100 mg/dl (70-99)
[2025-06-25] VITALS (13 sets, daily range): BP systolic 104–152; BP diastolic 42–70; PULSE 55; BMI 22.9
[2025-06-25] MEDS: DILAUDID 0.5 MG IV ×2 (00:32→04:49)
[2025-06-25 04:16] LABS: Hematocrit 36.1 % (39.0-52.0); Hemoglobin 12.8 g/dL (13.0-18.0); Mean Corp Hgb Conc. 35.5 g/dL (33.0-37.0); Mean Corpuscular Volume 91.4 fL (80.0-94.0); Platelet Count 131 10^3/uL (130-400); Red Cell Dist. Width 12.4 % (11.5-14.5)
[2025-06-25 04:25] LABS: INR 1.12; PT 14.7 Sec (11.4-14.6)
[2025-06-25 04:26] LABS: APTT 33.1 Sec (23.4-35.0)
[2025-06-25 04:53] LABS: Blood Urea Nitrogen 15 mg/dl (9-20); Calcium 8.5 mg/dl (8.4-10.2); Carbon Dioxide 23 mmol/L (22-30); Chloride 107 mmol/L (98-107); Estimated Creatinine Clearance 109 ml/min; Glucose 108 mg/dl (70-99); Magnesium 1.9 mg/dl (1.6-2.3); Potassium 4.3 mmol/L (3.5-5.1); Sodium 134 mmol/L (135-145); eGFR > 60.00
--- NOTE | 2025-06-25 05:47 | W.PN.VS ---
Today's Communication / Plan
-
d/c woody
oob
d/c home
Assessment/Plan
-
s/p right cea
- doing well
- d/c woody
- oob
- regular diet
- ok for discharge later today
- follow up in two weeks
Subjective Data
-
Date of Service: June 25, 2025
doing well
no issue
Objective Data
-
Vital Signs
Temp Pulse Resp BP Pulse Ox
97.9 F 49 22 123/62 100
06/25/25 04:00 06/25/25 05:00 06/25/25 05:00 06/25/25 05:00 06/25/25 05:00
Intake and Output
06/23/25 06/24/25 06/25/25
06:59 06:59 06:59
Intake Total 840 / 840 200 / 200
Output Total 1225 / 1225
Balance 840 / 840 -1025 / -1025
Intake:
Oral fluids 840 / 840
IV fluids (Total) 200 / 200
Normosol 200 / 200
Output:
Straight cath output 1225 / 1225
Other:
Number of approximated MODERATE 3
amounts of urine
Lab Results
06/25/25 04:08
06/25/25 04:08
Calcium 8.5 mg/dl (8.4-10.2) 06/25/25 04:08
Phosphorus 2.9 mg/dl (2.5-4.5) 06/23/25 12:07
Magnesium 1.9 mg/dl (1.6-2.3) 06/25/25 04:08
Physical Exam
-
rrr
ctab
inc c/d/i
no hematoma
neuro intact
--- NOTE | 2025-06-25 07:02 | CON.INTV ---
Consultation
Consultation Request
Date/Time Consultation Requested: 06/25/25
Date/Time Consultation Performed: 06/25/25
Performing Provider: Danna
Reason for Consultation: Postop Vasc
Medical History
-
History of Present Illness:
Patient is a 69-year-old male with previous history of hypertension, hyperlipidemia, rheumatoid arthritis, ILD, carotid stenosis presenting to with left facial numbness, expressive aphasia, headache and dizziness since day prior to admission. He
was seen by vascular as an outpatient and sent to the ER with suspicion for suspected TIAs and high-grade right carotid stenosis requiring intervention. Underwent right carotid endarterectomy 06/24/2025, postoperatively admitted to ICU for further
management.
Past Medical History
Past Medical History: Other (see list below)
Social History
Tobacco: Non-smoker
Alcohol: None
Drug: None
Family History
Family History: Reviewed & Not Pertinent
Allergies / Home Medications
Allergies
Allergy/AdvReac Type Severity Reaction Status Date / Time
latex Allergy Rash Verified 06/23/25 14:20
[id number] Reductase Allergy Unknown Verified 06/24/25 20:31
Inhibitor
Home Medications
�Medication �Instructions �Recorded �Confirmed �Last Taken �Type
aspirin 81 mg tablet,delayed 81 mg PO DAILY Blood Clot 05/23/25 06/23/25 06/23/25 09:00 History
release Prevention/Tx
hydroxychloroquine 200 mg tablet 200 mg PO BID Autoimmune Disorder 05/23/25 06/23/25 06/23/25 09:00 History
metoprolol succinate 50 mg 50 mg PO BID Blood Pressure 05/23/25 06/23/25 06/23/25 09:00 History
tablet,extended release 24 hr
(Toprol XL)
mirtazapine 15 mg tablet 15 mg PO HS Depression 05/23/25 06/23/25 06/22/25 22:00 History
plecanatide 3 mg tablet (Trulance) 3 mg PO DAILY Gastrointestinal 0706/23/25 06/23/25 09:00 History
Issue
tamsulosin 0.4 mg capsule (Flomax) 0.4 mg PO HS Urinary Issue 05/23/25 06/23/25 06/22/25 22:00 History
Magnesium Malate 1250 Mg 1,250 mg PO BID Supplement 06/23/25 06/23/25 06/23/25 09:00 History
alprazolam 0.25 mg tablet 0.25 mg PO TIDPRN PRN anxiety 06/23/25 06/23/25 06/22/25 10:00 History
clopidogrel 75 mg tablet 75 mg PO DAILY Blood Clot 06/23/25 06/23/25 06/23/25 09:00 History
Prevention/Tx
coenzyme Q10 100 mg capsule (Co 100 mg PO DAILY Supplement 06/23/25 06/23/25 06/23/25 09:00 History
Q-10)
evolocumab 140 mg/mL subcutaneous 140 mg SC Q14D High Cholesterol 06/23/25 06/23/25 Unknown History
syringe (Repatha Syringe)
famotidine 40 mg tablet 40 mg PO HS Gastrointestinal Issue 06/23/25 06/23/25 06/22/25 22:00 History
folic acid 0.8 mg capsule 0.8 mg PO DAILY Supplement 06/23/25 06/23/25 06/23/25 09:00 History
latanoprost 0.005 % eye drops 1 drp BOTH EYES HS Eye Condition 06/23/25 06/23/25 06/22/25 22:00 History
loratadine 10 mg tablet 10 mg PO DAILY Allergies 06/23/25 06/23/25 06/23/25 09:00 History
prednisone 5 mg tablet 5 mg PO DAILY inflammation 06/23/25 06/23/25 06/23/25 09:00 History
tadalafil 5 mg tablet 5 mg PO DAILY bph/ed 06/23/25 06/23/25 06/23/25 09:00 History
therapeutic multivitamin 1 tab PO DAILY Supplement 06/23/25 06/23/25 06/23/25 09:00 History
Review of Systems
-
History Source: Patient
All other systems: Negative unless noted
Vitals / Labs / Diagnostic Testing
Vital Signs
Temp Pulse Resp BP Pulse Ox
97.9 F 61 16 152/70 100
06/25/25 04:00 06/25/25 06:00 06/25/25 06:00 06/25/25 06:00 06/25/25 06:00
Lab Data
06/25/25 04:08
06/25/25 04:08
Laboratory Results
06/24/25 06/25/25
07:09 04:08
PT 14.8 H 14.7 H
INR 1.13 1.12
APTT 31.8 33.1
Diagnostic Testing:
Physical Exam
-
HEENT: Normocephalic, Anicteric and Moist Mucous Membranes
Cardiovascular: S1/S2 and Regular Rhythm
Respiratory: Rales (slight) and Non-Labored Respirations
GI: Soft, Non Distended and Non Tender
Neurology: Awake, Alert, Oriented and No Motor Deficits
Skin: Warm, Dry and Good Color
General: Comfortable and Other (NAD)
Assessment
-
Patient is a 69-year-old male with previous history of hypertension, hyperlipidemia, rheumatoid arthritis, ILD, carotid stenosis presenting to with left facial numbness, expressive aphasia, headache and dizziness since day prior to admission. He
was seen by vascular as an outpatient and sent to the ER with suspicion for suspected TIAs and high-grade right carotid stenosis requiring intervention. Underwent right carotid endarterectomy 06/24/2025, postoperatively admitted to ICU for further
management.
High-grade right carotid stenosis status post right CEA 06/24/2025
Suspect TIA
Left facial numbness, expressive aphasia, headaches, dizziness
Postoperative anemia, mild
Hyponatremia, mild
Conditions present prior to admission
hypertension
hyperlipidemia
ILD history, follows at [facility] (Dr Álvarez)
Rheumaid arthritis
CAD s/p CAB x 4
Multiple cardiac stents/history of WI
Cholecystectomy
lap appendectomy ([facility]) 04/2025
Plan
Patient is s/p -right CEA by vascular surgery service, POD #1
Continue observation following procedure
Follow neurovascular checks per protocol
ASA, PVX on board
Follow BP monitoring and parameters as set by primary team
Cardiac history noted--HTN, HLD, CAD
Monitor on telemetry
Pain control per protocol
RASS goal 0
Prior history of pulmonary disease, ILD followed at [facility], every 6 mos
CXR reviewed indicating mild IPF disease, he notes he has been stable last visit w/ PFTs/6MWT
Follow up at [facility] as OP post discharge
Encouraged IS
Diet advancement per protocol
Aspiration precautions
GI prophylaxis if indicated for stress ulcer prevention in the critically ill
Creat at baseline, follow UO
Critical I/Os
Void trials
Replete electrolytes as needed
No signs/symptoms suspicious for infectious etiology at this time
Will observe off antibiotics for now
Follow temperatures/CBC
Hb and platelets postoperatively stable
DVT prophylaxis recommended if not contraindicated based on procedural history -- heparin SQ and mechanical SCDs
Encouraged OOB/PT/OT/ambulation once cleared by surgical team
Discharge planning today per team
Diagnostic Data
Chest X-Ray: 06/24- No acute disease of the chest, mild fibrosis/stable
CT Scan: AP 05/23/25 - lung base: Peripheral and subpleural bilateral lower lobe coarse linear and reticular interstitial thickening, bronchial wall thickening, and groundglass opacity. Slightly more pronounced compared to prior examination. Likely
representing combination of interstitial fibrotic changes and atelectasis.
Echo:
PFT's:
Reports and relevant images were personally reviewed.
Critical Care time 50 mins -- this includes review of history, physical exam, medications, hemodynamic/O2 parameters, laboratory data, imaging and discussions with care team, pharmacy, nursing and patient.
[2025-06-25] MEDS: CLARITIN 10 MG PO (08:16)
[2025-06-25] MEDS: FOLVITE 1 MG PO (08:16)
[2025-06-25] MEDS: LOW STRENGTH ASPIRIN 81 MG PO (08:17)
[2025-06-25] MEDS: PLAVIX 75 MG PO (08:18)
[2025-06-25] MEDS: TYLENOL 650 MG PO (08:18)
[2025-06-25] MEDS: PLAQUENIL 200 MG PO (08:20)
[2025-06-25] MEDS: TOPROL XL 50 MG PO (08:20)
[2025-06-25] MEDS: DELTASONE 5 MG PO (08:21)
--- NOTE | 2025-06-25 08:24 | PTCARENOTE ---
0700 Assumed care/ Patient status post. Left Radial A/line removed per order. pressure held until hemostasis reached. 4x4 applied secured with tape. Dressing dry and intact. Orthostatic Blood pressure check , negative. Patient tolerated breakfast.
IV fluids stopped. Ambulates with no assistance in a room. OOB chair. Right neck incision well approximated no redness no swelling . call mcgee within reach
[2025-06-25 08:54] LABS: Glycohemoglobin (HgbA1c) 5.0 % (4.0-5.6)
--- NOTE | 2025-06-25 10:31 | W.PN.HOSP.TC ---
Today's Communication/Plan
-
Discharge today
Assessment / Plan
Assessment / Plan
HPI: 69-year-old with past medical history for hypertension, hyperlipidemia, ILD, rheumatoid arthritis, carotid stenosis, cardiac stents presented to us with left facial numbness, expressive aphasia, headache and dizziness intermittently since
yesterday. Patient stated off balance. Patient was evaluated by vascular physician today who sent him to ER. Patient denied any fever, chills, cough, congestion. Patient denied any chest pain or short of breath. Patient denied any abdominal
pain, nausea, vomiting or diarrhea. Patient denied dysuria hematuria.
#Acute tiny CVA per neurology
#Symptomatic carotid stenosis, right greater than left
Appreciate neurology input, clinically patient has acute tiny CVA, but does not need brain MRI
Appreciate vascular surgery input, s/p right CEA 06/24
Neurology recommends continuing aspirin and Plavix
LDL at goal 38, hemoglobin A1c 5.0
SPL recommends outpatient treatment�prescription provided
Medically stable and cleared by vascular surgery for discharge
Follow-up with PCP in 1 week, and vascular surgery as scheduled
# Coronary disease with history of CABG multiple stents
Continue aspirin and Plavix
# Peripheral disease
Right JAMES 0.85, TBI 0.57 high-grade stenosis within the right distal SFA more than 75%.
Left JAMES 1.09, left TBI 0.94 high-grade stenosis within the left distal SFA, estimated more than 75%
Infrapopliteal disease on both side
Vascular surgery recommends outpatient follow-up
# Paroxysmal atrial flutter with history of ablation -continue metoprolol
# Hypertension-continue metoprolol
# Rheumatoid arthritis-continue Plaquenil and prednisone
# Enlarged prostate-continue Flomax
# IBS-Trulance if patient's family is able to bring it in
# Depression-continue Remeron and Xanax
# Ex-smoker
DVT prophylaxis-SCDs
Full code
Physical Exam
General: No acute distress
HEENT: Normocephalic, Atraumatic, EOMI, MMM
Right neck incision clean/dry/intact
Respiratory: Clear to Auscultation bilaterally
Cardiac: Normal S1/S2, Regular Rate and Rhythm
GI: Soft, Nontender, Nondistended, Normal Bowel Sounds
Extremities: No Clubbing, Cyanosis, or Edema
Neuro: Improving dysarthria
Anticipated Discharge: Today
Subjective/Interval History
-
Date of Service: June 25, 2025
Patient's dysarthria has improved dramatically. Denies chest pain, denies shortness of breath. No fever, no vomiting.
Objective Data
-
Labs:
Laboratory Results
06/25/25
04:08
WBC 10.0
Hgb 12.8 L
Hct 36.1 L
Plt Count 131
PT 14.7 H
INR 1.12
APTT 33.1
Sodium 134 L
Potassium 4.3
Chloride 107
Carbon Dioxide 23
BUN 15
Creatinine 0.7
Glucose 108 H
Calcium 8.5
Vital Signs:
Vital Signs
Temp Pulse Resp BP Pulse Ox
98.2 F 68 16 128/68 100
06/25/25 11:11 06/25/25 08:20 06/25/25 06:00 06/25/25 08:20 06/25/25 06:00
I&O
06/24/25 06/25/25 06/26/25
06:59 06:59 06:59
Intake Total 840 / 840 200 / 200
Output Total 1225 / 1225
Balance 840 / 840 -1025 / -1025
--- NOTE | 2025-06-25 12:31 | W.DCSUMMARY ---
Discharge Summary
Discharge Data
Date of Admission: 06/23/25
Date of Discharge: 06/25/25
-
Pending Results: No
Hospital Course
Discharge diagnosis:
Acute tiny stroke per neurology
Dysarthria
Symptomatic carotid stenosis, right greater than left
Carotid artery disease with history of coronary artery bypass graft surgery
Peripheral artery disease
Paroxysmal atrial flutter with history of ablation
Essential hypertension
Rheumatoid arthritis
Enlarged prostate
Irritable bowel syndrome
Depression
Consults: Neurology, vascular surgery, plating technician
Procedures:
06/24/2025 right carotid enterectomy
Hospital course:
69-year-old male with a past medical history of CAD, PAD, atrial flutter status post ablation, hypertension, RA, and IBS was admitted for acute tiny stroke secondary to symptomatic right carotid artery stenosis. Patient was seen in conjunction with
neurology and vascular surgery. He was treated with an IV heparin drip, continued on his previous home aspirin, Plavix. He underwent right carotid endarterectomy with vascular surgery on 06/24/2025. He did well postoperatively. Patient's
dysarthria improved dramatically. He was seen in conjunction with [facility], and who recommended outpatient speech services. Prescription was provided. Patient is medically stable and cleared by vascular surgery for discharge. He needs to follow-up
with vascular surgery in the office, and his PCP in 1 week.
Disposition: Home self-care
Discharge planning: Required 39 minutes
Discharge Plan
-
Patient Disposition: Home (Routine Discharge)
Discharge Diagnosis/Procedures: Acute tiny CVA, carotid stenosis status post right carotid enterectomy
Condition: Good
Diet: As tolerated
Activity: No strenuous activity
Driving Restrictions: Not until seen by your Dr
Bathing Restrictions: OK to Shower
Activity Restrictions/Additional Instructions:
Please follow-up with vascular surgery as directed, and your primary care provider in 1 week.
Stand Alone Forms: Vascular Surg Discharge Instr
Referrals:
UNKNOWN - PT DOES,NOT KNOW [Family Provider]
Cathie Epstein CRNP [Specified Professional Personl, Vascular Surgery] - 07/11/25 8:30 am
Referral Note: Vascular surgery office follow-up
Prescriptions:
Continued
metoprolol succinate [Toprol XL] 50 mg Tablet Extended Release 24 Hr
50 mg PO BID
aspirin 81 mg Tablet,Delayed Release (Dr/Ec)
81 mg PO DAILY
tamsulosin [Flomax] 0.4 mg Capsule
0.4 mg PO HS
mirtazapine 15 mg Tablet
15 mg PO HS
hydroxychloroquine 200 mg Tablet
200 mg PO BID
Trulance 3 mg Tablet
3 mg PO DAILY
prednisone 5 mg Tablet
5 mg PO DAILY
tadalafil 5 mg tablet
5 mg PO DAILY
alprazolam 0.25 mg tablet
0.25 mg PO TIDPRN PRN (Reason: anxiety)
latanoprost 0.005 % drops
1 drp BOTH EYES HS
famotidine 40 mg tablet
40 mg PO HS
therapeutic multivitamin Tablet
1 tab PO DAILY
clopidogrel 75 mg tablet
75 mg PO DAILY
loratadine 10 mg Tablet
10 mg PO DAILY
coenzyme Q10 [Co Q-10] 100 mg Capsule
100 mg PO DAILY
folic acid 0.8 mg Capsule
0.8 mg PO DAILY
Repatha Syringe 140 mg/mL syringe
140 mg SC Q14D
Patient Comments:
pt unsure of date- took last week
Magnesium Malate 1250 Mg
1,250 mg PO BID
Discharge Orders:
Discharge Patient (As Directed); Ordered 06/25/25
Ordered By: Jaime López
Discharge Date and Time
Discharge Date/Time: 06/25/25 14:30
Print Language: URDU
--- NOTE | 2025-06-25 13:12 | PTOTSP ---
ST Acute Care Evaluation
Pt currently presents with clinical signs of oral, pharyngeal and esophageal swallowing paramters that appear WFL. No overt s/s of penetration or aspiration noted at bedside.
Pt reports that pt recent experienced a prolonged period of expressive aphasia that has since improved since R CEA. Pt refused formal cognitive linguistic evaluation as he is eager to be discharged and his is here for his pick-up. Extensive
education provided regarding how the location of where pt's suspected TIA/CVAs are located could impact pt's everyday function including but not limited to memory, information processing, multi-tasking, attention, and executive function with
appropriate examples. Advised pt have someone check over his work as it pertains to work, medications, and money, as well as for pt to use caution when driving. Pt was receptive to this information. BRANCH SERVICES MANAGER also encouraged pt to pursue formal OP BRANCH SERVICES MANAGER
evaluation/tx if pt notes that he is still frustrated that he has not recovered fully or if he/others notice any other deficits.
Recommendations:
- Regular solids, thin liquids, meds as tolerated.
- General aspiration precautions.
- BRANCH SERVICES MANAGER to f/u re: diet tolerance 1x given recent intubation/extubation, CEA, and TIA/CVA.
- BRANCH SERVICES MANAGER to f/u re: completion of cognitive linguistic evaluation, if pt remains admitted. If pt is discharged, pt can pursue OP BRANCH SERVICES MANAGER evaluation for cognitive linguistic evaluation as desired.
--- NOTE | 2025-06-25 14:30 | PTCARENOTE ---
Patient discharge home at 14:30 At time of discharge patient AAO x 3 VSS; Rt neck incision intact, NAOMY; Peripheral lines RT and left Removed. All discharge instructions provided to patient. Patient confirmed an understanding of all instructions.
Script for ST provided. Patient escorted to hospital's main lobby. Transportation home provided by pt's
--- NOTE | 2025-06-25 14:34 | CM ---
CM reviewed chart, patient for discharge today. Call to patient to discuss discharge planning, patient reports he is walking out of hospital now and is unable to talk. Patient plan home no needs.
Plan; home no needs.
== END 2025-06-25 14:30 | disposition home or self-care (01) | DRG 38 ==
LOC: ICU 12:57
PROVIDERS: Nurse Practitioner; Nurse Practitioner Acute Care; Surgery Vascular Surgery; ADMITTING PHYSICIAN Student in an Organized Health Care Education/Training Program; ATTENDING PHYSICIAN Family Medicine; CONSULT PHYSICIAN Psychiatry & Neurology Clinical Neurophysiology; EMERGENCY PHYSICIAN Emergency Medicine; OTHER PHYSICIAN Internal Medicine
PROC: 03CH0ZZ Extirpation of Matter from Right Common Carotid Artery, Open Approach (ICD-10-PCS; 2025-06-24)
PROC: 03UH0KZ Supplement Right Common Carotid Artery with Nonautologous Tissue Substitute, Open Approach (ICD-10-PCS; 2025-06-24)
DX: I63.231 Cerebral infarction due to unspecified occlusion or stenosis of right carotid arteries (principal); E87.1 Hypo-osmolality and hyponatremia; I48.92 Unspecified atrial flutter; J84.9 Interstitial pulmonary disease, unspecified; R42 Dizziness and giddiness; R47.01 Aphasia; E78.00 Pure hypercholesterolemia, unspecified; H40.9 Unspecified glaucoma; I10 Essential (primary) hypertension; I25.10 Atherosclerotic heart disease of native coronary artery without angina pectoris; K58.9 Irritable bowel syndrome, unspecified; F32.A Depression, unspecified; M06.9 Rheumatoid arthritis, unspecified; I73.9 Peripheral vascular disease, unspecified; R29.810 Facial weakness; I48.0 Paroxysmal atrial fibrillation; R47.1 Dysarthria and anarthria; D64.9 Anemia, unspecified; N40.0 Benign prostatic hyperplasia without lower urinary tract symptoms; I25.2 Old myocardial infarction; Z95.1 Presence of aortocoronary bypass graft; Z90.49 Acquired absence of other specified parts of digestive tract; Z87.891 Personal history of nicotine dependence; Z95.5 Presence of coronary angioplasty implant and graft; Z91.040 Latex allergy status
CPT/HCPCS: 35301; 70450; 71045; 80048; 80061; 82962; 83036; 83735; 84100; 85025; 85027; 85610; 85730; 88304; 88311; 92610; 93005; 95938; 95941; 95955; 97162; 99285

== ENCOUNTER → 2025-08-03 14:30 | Outpatient (REF) | payer MEDICARE, OTHER, SELFPAY | LOC: RAD 14:30 | PROVIDERS: ATTENDING PHYSICIAN Registered Nurse; FAMILY PHYSICIAN Family Medicine | DX: I65.21 Occlusion and stenosis of right carotid artery (principal) | CPT/HCPCS: 93880 ==